=== PATIENT | female | born 1960 | race Caucasian/White ===

== ENCOUNTER → 2019-03-30 07:24 | Outpatient (CLI) | payer OTHER, SELFPAY ==
[2019-03-24 14:16] VITALS: BMI 23.5
[2019-03-30 08:10] LABS: AST(SGOT) 14 U/L (15-37); Alanine Aminotransfer ALT/SGPT 21 U/L (13-56); Alkaline Phosphatase 68 U/L (45-117); Bilirubin, Direct 0.16 mg/dL (0.00-0.30); Cholesterol 199 mg/dL (200); High Density Lipoprotein 70 mg/dL; Triglycerides 82 mg/dL; Very Low Density Lipoprotein 16 mg/dL (5-40)
== END ==
PROVIDERS: PCP Internal Medicine; Referring Provider Internal Medicine Cardiovascular Disease; Visit Provider Internal Medicine Cardiovascular Disease
DX: Z13.220 Encounter for screening for lipoid disorders (principal)
CPT/HCPCS: 36415; 80061; 80076

== ENCOUNTER → 2019-04-08 15:04 | Outpatient (CLI) | payer OTHER, SELFPAY ==
[2019-03-24 14:16] VITALS: BMI 23.5
--- NOTE | 2019-04-08 15:10 | ECHOCS_ITS ---
Reason For Study: MVP Procedure This was a 2D Doppler, Color Flow transthoracic echocardiogram. Contrast injection was performed. Exam performed in department. Left Ventricle Normal size and thickness. The estimated ejection fraction is 65 %. Normal diastology for age. No regional wall motion abnormalities noted. Right Ventricle Mildly dilated right ventricle. Normal systolic function. Atria The left atrium is moderately enlarged. Normal right atrium. Normal atrial septum. Bubble contrast study negative for right to left interatrial shunt. Mitral Valve Anterior leaflet mitral valve prolapse. Mild (1+) posteriorly directed mitral valve insufficiency. Tricuspid Valve Normal tricuspid valve. Mild (1+) tricuspid valve insufficiency. Right ventricular systolic pressure estimated to be 30 mmHg. Aortic Valve Normal aortic valve. Trisinus/trileaflet aortic valve. Pulmonic Valve Normal pulmonic valve. Trivial pulmonic valve insufficiency. Great Vessels Normal aortic root. Normal arch. Normal inferior vena cava. Inferior vena cava collapse with sniff. Pericardium/Pleural No pericardial effusion. Medication 22 gauge I.V. with prn adaptor inserted into right arm. Diluted definity 3ml given slow IV push to enhance endocardial definition. Performed a rapid injection of agitated mix of 9 cc saline and 1cc air to assess for atrial septal defect. MMode/2D Measurements & Calculations LVIDd: 4.2 cm IVSd: 0.97 cm Ao root diam: 2.8 cm LVIDs: 1.9 cm LVPWd: 1.0 cm LA dimension: 3.8 cm RVDd: 3.9 cm FS: 55.2 % LAV(MOD-sp4): 83.8 ml LA A4 area: 25.3 cm2 RA A4 area: 15.4 cm2 Time Measurements MV dec time: 0.23 sec Doppler Measurements & Calculations MV E max sundar: 51.5 cm/sec Lat Peak E' Sundar: 9.2 cm/sec Med Peak E' Sundar: 7.9 cm/sec MV A max sundar: 43.9 cm/sec E/E' lat: 5.6 E/E' med: 6.5 MV E/A: 1.2 MV V2 max: 66.0 cm/sec MV P1/2t max sundar: 68.6 cm/sec Ao V2 max: 103.5 cm/sec MV max P.7 mmHg MV P1/2t: 128.7 msec Ao max P.3 mmHg MV V2 mean: 40.8 cm/sec MV dec slope: 156.1 cm/sec2 Ao V2 mean: 72.2 cm/sec MV mean P.76 mmHg Ao mean P.3 mmHg MV V2 VTI: 24.2 cm MVA(P1/2t): 1.7 cm2 Ao V2 VTI: 22.6 cm LV V1 max: 91.0 cm/sec PA V2 max: 95.3 cm/sec TR max sundar: 249.6 cm/sec LV V1 max P.3 mmHg TR max P.9 mmHg LV V1 mean P.5 mmHg LV V1 mean: 56.3 cm/sec LV V1 VTI: 19.6 cm Interpretation Summary The estimated ejection fraction is 65 %. Normal diastology for age. Mildly dilated right ventricle. The left atrium is moderately enlarged. Bubble contrast study negative for right to left interatrial shunt. Anterior leaflet mitral valve prolapse. Mild (1+) posteriorly directed mitral valve insufficiency. Mild (1+) tricuspid valve insufficiency. Right ventricular systolic pressure estimated to be 30 mmHg. The study was technically difficult. Contrast injection was performed. There is no comparison study available. Ordering Physician: Harris Mari Referring Physician: Harris Mari Performed By: Brian Keyes RCS
== END ==
PROVIDERS: PCP Internal Medicine; Referring Provider Internal Medicine Cardiovascular Disease; Visit Provider Internal Medicine Cardiovascular Disease
DX: I34.0 Nonrheumatic mitral (valve) insufficiency (principal); I34.1 Nonrheumatic mitral (valve) prolapse; I49.3 Ventricular premature depolarization; Z86.79 Personal history of other diseases of the circulatory system
CPT/HCPCS: 93306; Q9957; A4216; C8929

== ENCOUNTER → 2019-04-15 12:18 | Outpatient (CLI) | payer OTHER, SELFPAY ==
[2019-03-24 14:16] VITALS: BMI 23.5
--- NOTE | 2019-04-15 12:19 | STE_ITS ---
Reason For Study: Abnormal EKG Stress Results Protocol: Good Protocol Maximum Predicted HR: 163 bpm Target HR: 139 bpm % Maximum Predicted HR: 90 % DurationHeart Rate Stage (mm:ss) (bpm) BP Comment Baseline 69 124/72No Chest Pain Good Protocol Stage I 3:00 95 118/70No Chest Pain Good Protocol Stage II 3:00 111 124/64No Chest Pain Good Protocol Stage III 3:00 141 140/70No Chest Pain Good Protocol Stage IV 0:16 146 / No Chest Pain Recovery 84 116/70No Chest Pain Stress Duration: 9:16 mm:ss Maximum Stress HR: 146 bpm METS: 10 Baseline Echocardiogram Findings The estimated ejection fraction is 65 %. Stress Echo Wall motion Data Resting WM Intermediate WM Stress WM Resting Wall Motion Wall Motion Stress No regional wall motion No regional wall motion abnormalities noted. abnormalities noted. EKG Data The baseline ECG displays normal sinus rhythm. The patient exercised according to the regular Good protocol for a total duration of 9:16. The maximum heart rate attained was 148 beats per minute. This was 90% of maximum predicted heart rate. The patient exercised into stage 4 of the Good protocol. During stress, there were no ST or T wave changes noted to suggest ischemia. No clinical angina was noted. Interpretation Summary The estimated ejection fraction is 65 %. Normal, adequate, treadmill echocardiogram. Negative for ischemia by EKG and echocardiographic criteria. No anginal symptoms noted. No arrhythmias noted. Appropriate blood pressure response to exercise. Average exercise capacity for age. Final LVEF is 75%. Test terminated due to leg discomfort. Patient tolerated procedure well. No complications. Ordering Physician: Harris Mari Referring Physician: Larissa Jaimes Performed By: Felecia Roldan, RDCS, RVT
== END ==
PROVIDERS: PCP Internal Medicine; Referring Provider Internal Medicine Cardiovascular Disease; Visit Provider Internal Medicine Cardiovascular Disease
DX: R94.31 Abnormal electrocardiogram [ECG] [EKG] (principal); I34.0 Nonrheumatic mitral (valve) insufficiency; I34.1 Nonrheumatic mitral (valve) prolapse; I49.3 Ventricular premature depolarization; Z86.79 Personal history of other diseases of the circulatory system; Z51.81 Encounter for therapeutic drug level monitoring; Z79.899 Other long term (current) drug therapy
CPT/HCPCS: 93017; 93350

== ENCOUNTER → 2020-07-06 07:31 | Outpatient (CLI) | payer OTHER, SELFPAY ==
[2019-11-17 10:55] VITALS: BMI 22.2
[2020-07-06 08:50] LABS: AST(SGOT) 15 U/L (15-37); Alanine Aminotransfer ALT/SGPT 20 U/L (13-56); Albumin, Serum 4.1 g/dL (3.2-5.0); Alkaline Phosphatase 64 U/L (45-117); Bilirubin, Direct 0.15 mg/dL (0.00-0.30); Cholesterol 184 mg/dL (200); Globulin 2.8 g/dL (2.2-4.2); High Density Lipoprotein 67 mg/dL; Protein, Total 6.9 g/dL (6.4-8.2); Triglycerides 95 mg/dL; Very Low Density Lipoprotein 19 mg/dL (5-40)
== END ==
PROVIDERS: PCP Internal Medicine; Referring Provider Internal Medicine Cardiovascular Disease; Visit Provider Internal Medicine Cardiovascular Disease
DX: E78.00 Pure hypercholesterolemia, unspecified (principal); I34.1 Nonrheumatic mitral (valve) prolapse; I34.0 Nonrheumatic mitral (valve) insufficiency; Z86.79 Personal history of other diseases of the circulatory system
CPT/HCPCS: 36415; 80061; 80076

== ENCOUNTER 2021-03-03 07:52 | Outpatient (CLI) | payer OTHER, SELFPAY ==
[2021-03-03 08:53] LABS: AST(SGOT) 16 U/L (15-37); Alanine Aminotransfer ALT/SGPT 19 U/L (13-56); Albumin, Serum 3.9 g/dL (3.2-5.0); Alkaline Phosphatase 69 U/L (45-117); Bilirubin, Direct 0.14 mg/dL (0.00-0.30); Cholesterol 204 mg/dL (200); Globulin 3.1 g/dL (2.2-4.2); High Density Lipoprotein 71 mg/dL; Triglycerides 89 mg/dL; Very Low Density Lipoprotein 18 mg/dL (5-40)
== END 2021-03-03 23:59 | disposition short-term general hospital (02) ==
PROVIDERS: PCP Internal Medicine; Referring Provider Internal Medicine Cardiovascular Disease; Visit Provider Internal Medicine Cardiovascular Disease
DX: E78.00 Pure hypercholesterolemia, unspecified (principal); I34.0 Nonrheumatic mitral (valve) insufficiency; I34.1 Nonrheumatic mitral (valve) prolapse
CPT/HCPCS: 36415; 80061; 80076

== ENCOUNTER 2021-04-24 13:53 | Outpatient (CLI) | payer OTHER, SELFPAY ==
--- NOTE | 2021-04-24 13:55 | ECHOD_ITS ---
Reason For Study: MITRAL VALVE PROLAPSE Procedure This was a 2D Doppler, Color Flow transthoracic echocardiogram. Exam performed in department. Left Ventricle Normal LV size. Sigmoid septum. Left ventricular systolic function is normal. The estimated ejection fraction is 60 %. No evidence for diastolic dysfunction. No regional wall motion abnormalities noted. Right Ventricle Normal RV size. Normal systolic function. Atria The left atrium is mildly enlarged. Normal right atrium. No doppler evidence for ASD. Mitral Valve There is no mitral annular calcification. Moderate mitral valve prolapse. Moderate (2+) eccentric mitral valve insufficiency. Tricuspid Valve Normal tricuspid valve. Mild to moderate (1-2+) tricuspid valve insufficiency. Right ventricular systolic pressure estimated to be 30 mmHg. Aortic Valve Trisinus/trileaflet aortic valve. Normal aortic valve. Pulmonic Valve The pulmonic valve is not well visualized. Trivial eccentric pulmonic valve insufficiency. Great Vessels Normal sized aortic root. Pericardium/Pleural No pericardial effusion. MMode/2D Measurements & Calculations LVIDd: 4.2 cm IVSd: 0.94 cm Ao root diam: 2.4 cm LVIDs: 2.9 cm LVPWd: 0.84 cm RVDd: 3.4 cm FS: 31.5 % LAV(MOD-bp): 74.2 ml LA A4 area: 17.7 cm2 LA dimension(2D): 4.2 cm LAV(MOD-bp) Indexed: 42.1 ml/m2 LAV(MOD-sp2): 75.8 ml LAV(MOD-sp4): 61.4 ml RA A4 area: 10.4 cm2 Time Measurements MV dec time: 0.14 sec Doppler Measurements & Calculations MV E max sundar: 67.5 cm/sec Lat Peak E' Sundar: 9.7 cm/sec Med Peak E' Sundar: 8.3 cm/sec MV A max sundar: 56.6 cm/sec E/E' lat: 7.0 E/E' med: 8.2 MV E/A: 1.2 PA V2 max: 90.5 cm/sec TR max sundar: 256.7 cm/sec TR max P.5 mmHg ECHO/Echo Complete Interpretation Summary Left ventricular systolic function is normal. The estimated ejection fraction is 60 %. Sigmoid septum. The left atrium is mildly enlarged. Moderate mitral valve prolapse. Moderate (2+) eccentric mitral valve insufficiency. Mild to moderate (1-2+) tricuspid valve insufficiency. Trivial eccentric pulmonic valve insufficiency. Right ventricular systolic pressure estimated to be 30 mmHg. No evidence for diastolic dysfunction. Ordering Physician: Anabelle Ponce Referring Physician: Larissa Jaimes Performed By: Suzanne Saunders RDCS, RVT
== END 2021-04-24 23:59 | disposition home or self-care (01) ==
LOC: CVS 13:54
PROVIDERS: PCP Internal Medicine; Referring Provider Physician Assistant Medical; Visit Provider Physician Assistant Medical
DX: I34.0 Nonrheumatic mitral (valve) insufficiency (principal); I34.1 Nonrheumatic mitral (valve) prolapse
CPT/HCPCS: 93306

== ENCOUNTER → 2022-04-19 | Outpatient (CLI) | payer OTHER, SELFPAY ==
[2022-04-19 09:36] LABS: AST(SGOT) 15 U/L (15-37); Alanine Aminotransfer ALT/SGPT 21 U/L (13-56); Alkaline Phosphatase 62 U/L (45-117); Bilirubin, Direct 0.15 mg/dL (0.00-0.30); Cholesterol 193 mg/dL (200); High Density Lipoprotein 65 mg/dL; Triglycerides 86 mg/dL; Very Low Density Lipoprotein 17 mg/dL (5-40)
== END | disposition home or self-care (01) ==
PROVIDERS: PCP Internal Medicine; Visit Provider Internal Medicine Cardiovascular Disease
DX: E78.00 Pure hypercholesterolemia, unspecified (principal); I34.0 Nonrheumatic mitral (valve) insufficiency
CPT/HCPCS: 36415; 80061; 80076

== ENCOUNTER → 2023-04-18 | Outpatient (CLI) | payer OTHER, SELFPAY ==
--- OUTSIDE RECORDS SUMMARY | 2023-04-18 08:07 | XMS RPT_ITS | CCD ---
Author Name Unknown Address [address] [place] [address] Organization [facility] Care Team Providers Care Aviation Technician Name Role Phone BEBO BYRD Unavailable Unavailable BEBO BYRD Unavailable Unavailable TALAMPAS, JOAO Unavailable Unavailable BEBO BYRD Unavailable Unavailable BEBO BYRD Unavailable Unavailable ALBAROAMPASHIA, JOAO Unavailable Unavailable Joao Jaimes MD Primary Care Provider Joao Jaimes MD Primary Care Provider DEVI JOAO D Primary Care Unavailable RAVI CHRISTOPHER MAMIE ROXANNE Referring Unavailable CORINA BOYCE Attending Unavailable TALAMPAS, JOAO D Primary Care Unavailable CORINA BOYCE Referring Unavailable TALAMPAS, JOAO D Primary Care Unavailable TALAMPAS, JOAO D Referring Unavailable CORINA BOYCE Attending Unavailable TALAMPAS, JOAO D Referring Unavailable TALAMPAS, JOAO D Attending Unavailable TALAMPAS, JOAO D Primary Care Unavailable TALAMPAS, JOAO D Primary Care Unavailable Allergies Allergy Classification Reported Allergen(s) Allergy Type Date of Onset Reaction(s) Facility (17 sources) magnesium sulfate; Translations: [MAGNESIUM SULFATE] Drug Allergy 5 Other: See Comments [facility] (17 sources) minocycline; Translations: [MINOCYCLINE] Drug Allergy 5 Rash, Intolerance [facility] (17 sources) Sulfonamides (Antibiotic); Translations: [SULFA (SULFONAMIDE ANTIBIOTICS)] Propensity to adverse reactions (disorder) 5 Hives [facility] Medications Current Medications Medication Drug Class(es) Dates Sig (Normalized) Sig (Original) amoxicillin 875 mg / clavulanate 125 mg oral tablet (2 sources) Penicillin-class Antibacterial Start: 05-20-2021 End: 05-27-2021 take 1 tablet by mouth twice daily amoxicillin-clav ulanic acid (AUGMENTIN) 875-125 mg per tablet Take 1 tablet by mouth twice daily for 7 days. 14 tablet 0 05/20/2021 05/27/2021 Active Completed/Discontinued Medications Medication Drug Class(es) Dates Sig (Normalized) Sig (Original) acebutolol 400 mg oral capsule (14 sources) beta-Adrenergic Harsha Start: 03-17-2018 take 1 capsule by mouth once daily at bedtime Acebutolol HCl 400 mg capsule Indications: PVC (premature ventricular contraction) , SVT (supraventricular tachycardia) ([facility]) , Palpitations Take 1 capsule by mouth daily at bedtime. 90 capsule 3 03/17/2018 Active Problems Active Problems Problem Classification Problem Date Documented Date Episodic/Chronic Cardiac dysrhythmias (20 sources) Supraventricular tachycardia; Translations: [Ventricular premature beats] Onset: 11-17-2008 11-17-2008 Chronic Cardiac dysrhythmias (14 sources) Palpitations; Translations: [Palpitations] 03-02-2005 Episodic Heart valve disorders (14 sources) Rheumatic mitral valve disease, unspecified; Translations: [Mitral valve disorders] Onset: 08-22-2005 08-22-2005 Chronic Menstrual disorders (14 sources) Intermenstrual bleeding - irregular; Translations: [Excessive and frequent menstruation with irregular cycle] Onset: 03-28-2016 03-28-2016 Chronic Nonmalignant breast conditions (1 source) Lump in upper inner quadrant of right breast; Translations: [Unspecified lump in the right breast, upper inner quadrant] Episodic Other aftercare (4 sources) Patient encounter status; Translations: [Other buttermilk drier operator (current) drug therapy] Episodic Other and unspecified benign neoplasm (1 source) Benign neoplasm of right breast; Translations: [Fibroadenoma of breast, right] Onset: 04-17-2022 Episodic Other connective tissue disease (1 source) Bilateral medial epicondylitis of elbows; Translations: [Medial epicondylitis, right elbow] Episodic Other connective tissue disease (1 source) Lateral epicondylitis of bilateral humerus; Translations: [Lateral epicondylitis, right elbow] Episodic Other connective tissue disease (1 source) Pain in left foot; Translations: [Pain in left foot] Episodic Other screening for suspected conditions (not mental disorders or infectious disease) (6 sources) Mammography abnormal; Translations: [Other abnormal and inconclusive findings on diagnostic imaging of breast] Onset: 03-23-2022 Episodic Other upper respiratory infections (1 source) Acute maxillary sinusitis; Translations: [Acute maxillary sinusitis, unspecified] Episodic Unclassified (1 source) Unknown / UNK(Unknown) Onset: 10-03-2009 Past or Other Problems Problem Classification Problem Date Documented Da te Episodic/Chronic Other non-traumatic joint disorders (14 sources) Greater trochanteric pain syndrome of right lower limb; Translations: [Pain in right hip] Onset: 06-18-2018 06-18-2018 Episodic Spondylosis; intervertebral disc disorders; other back problems (15 sources) Lumbar radiculopathy; Translations: [Radiculopathy, lumbar region] Onset: 06-18-2018 06-18-2018 Episodic Results Test Name Value Interpretation Reference Range Facil ity Vital Signs Date Time Vital Sign Value Performing Clinician Faci lity 03-23-2022 14:27-0500 Body height 168.9 cm Corina Boyce MD Work Phone: [facility] 03-23-2022 14:27-0500 Body weight 68.95 kg Corina Boyce MD Work Phone: [facility] 03-23-2022 14:27-0500 Diastolic blood pressure 80 mm[Hg] Corina Boyce MD Work Phone: [facility] 03-23-2022 14:27-0500 Heart rate 65 /min Corina Boyce MD Work Phone: [facility] 03-23-2022 14:27-0500 Systolic blood pressure 125 mm[Hg] Corina Boyce MD Work Phone: [facility] 03-09-2022 13:45-0500 Body height 168.9 cm Teena Carroll MD Work Phone: [facility] 03-09-2022 13:45-0500 Body weight 68.95 kg Teena Carroll MD Work Phone: [facility] 03-09-2022 13:45-0500 Diastolic blood pressure 74 mm[Hg] Teena Carroll MD Work Phone: [facility] 03-09-2022 13:45-0500 Systolic blood pressure 112 mm[Hg] Teena Carroll MD Work Phone: [facility] 05-20-2021 09:30-0400 Body temperature 99.19 [degF] [facility]IMPROVEMENT RN Work Phone: [facility] 05-20-2021 09:30-0400 Body weight 66.32 kg Reaganlasha Gonzalezcharli [employer]IMPROVEMENT RN Work Phone: [facility] 05-20-2021 09:30-0400 Diastolic blood pressure 78 mm[Hg] Reagan Pendlecharli [employer]IMPROVEMENT RN Work Phone: [facility] 05-20-2021 09:30-0400 Heart rate 71 /min Reagan Pendnorma [employer]IMPROVEMENT RN Work Phone: [facility] 05-20-2021 09:30-0400 Respiratory rate 14 /min [facility] [employer]IMPROVEMENT RN Work Phone: [facility] 05-20-2021 09:30-0400 SaO2% (BldA) [Mass fraction] 92 % [facility]IMPROVEMENT RN Work Phone: [facility] 05-20-2021 09:30-0400 Systolic blood pressure 110 mm[Hg] [facility]IMPROVEMENT RN Work Phone: [facility] 05-16-2021 13:23-0400 Body weight 65.41 kg Joao Jaimes MD Work Phone: [facility] 05-16-2021 13:23-0400 Diastolic blood pressure 78 mm[Hg] Joao Jaimes MD Work Phone: [facility] 05-16-2021 13:23-0400 Heart rate 72 /min Joao Jaimes MD Work Phone: [facility] 05-16-2021 13:23-0400 Systolic blood pressure 106 mm[Hg] Joao Jaimes MD Work Phone: [facility] Encounters Encounter Date Encounter Type Care Provider Facility Start: 03-05-2024 Documentation procedure Mammog tyler Coordinator [facility] Start: 04-16-2023 Letter encounter Mammography Coordinator [facility] Department Start: 04-16-2023 End: 04-16-2023 Subsequent hospital visit by physician Screen Mammo [facility] Mammogram Procedures Date Procedure Procedure Detail Performing Clinician Start: 04-16-2023 Screening digital br east tomosynthesis bi Teena Carroll MD Work Phone: Start: 04-09-2022 YEN DIAG W THELMA RT Corina Boyce MD Work Phone: Start: 04-09-2022 Bx breast w/device 1 st lesion ultrasound guid Corina Boyce MD Work Phone: Start: 03-07-2022 Us breast uni real t jacob with image limited Teena Carroll MD Work Phone: Start: 03-07-2022 YEN DIAG W THELMA RIGHT R adama Carroll MD Work Phone: Start: 01-25-2022 YEN SCREENING W THELMA Re alaina Carroll MD Work Phone: Start: 01-25-2022 Mammography Teena wilde MD Work Phone: Start: 05-24-2021 2019 CORONAVIRUS [facility] Start: 01-23-2021 Mammography Reagan marquez [employer]IMPROVEMENT RN Work Phone: Start: 09-11-2018 Lipid 1996 panel - S betsy or Plasma [facility] Start: 10-29-2017 Adult depression scr eening assessment Reagan Hooks [employer]IMPROVEMENT RN Work Phone: Plan of Treatment Date Care Activity Detail Author Start: 01-17-2025 HPV TESTING HPV TESTING [facility] Start: 01-17-2025 PAP TESTING PAP TESTING [facility] Start: 01-17-2025 Screening for malign ant neoplasm of cervix [facility] Start: 06-27-2024 DIABETES SCREEN DIABETES SCREEN [facility] Start: 06-27-2024 Diabetes Screening Diabetes Screenin g [facility] Start: 04-24-2024 COLOGUARD (FIT-DNA) COLOGUARD (FIT-D NA) [facility] Start: 04-24-2024 COLORECTAL CANCER SCREENING COLORECTAL CANCER SCREENING [facility] Start: 04-24-2024 Screening for malign ant neoplasm of colon [facility] Start: 04-15-2024 Screening for malign ant neoplasm of breast Mammogram Screening [facility] Start: 04-02-2024 Covid-19 Vaccine ( season) Covid-19 Vaccine () [facility] Immunizations Immunization Date Immunization Notes Care Provider Florian mcintosh 2022 influenza, injectabl e, quadrivalent, preservative free Screen [facility] Work Phone: 11-20-2021 influenza, injectabl e, quadrivalent, preservative free Screen [facility] Work Phone: 11-20-2021 influenza virus vaccine, unspecified formulation Diagnostic [facility] 11-21-2020 influenza, injectabl e, quadrivalent, preservative free Reagan Pendlebury [employer] Work Phone: [facility] Work Phone: 11-23-2019 influenza, injectabl e, quadrivalent, preservative free Reagan Pendlebury [employer] Work Phone: [facility] Work Phone: 11-23-2019 influenza, seasonal, injectable Reagan Pendlebury [employer] Work Phone: [facility] Work Phone: Payers Date Payer Category Payer Unknown [id number] 2021 Private Health Insurance [employer] A ETNA ASA GENERIC [id number] 2021-Present [phone] [address] [address] [place] [address] PPO [id number] 2021 Private Health Insurance [id number] [id number] Unknown [id number] Social History Date Type Detail Facility Start: 03-09-2022 Tobacco smoking stat us [facility] Never smoked tobacco [facility] Work Phone: Start: 05-20-2021 End: 04-02-2023 Alcohol intake Current non-drinker of alcohol (finding) [facility] Start: 01-06-2019 History SDOH Financial 5 [facility] Start: 01-06-2019 History SDOH Food Worry 1 [facility] Start: 01-06-2019 History SDOH Transpo rt Med 2 [facility] Start: 01-06-2019 Education 18 [facility] Start: 1960 Sex Assigned At Not on file [facility] Start: 05-10-2021 End: 05-20-2021 Exposure to SARS-CoV-2 (event) Not sure [facility] Work Phone: Start: 03-09-2022 Tobacco use and exposure Smokeless tobacco non-user [facility] Start: 05-20-2021 End: 04-02-2023 History of Social function [facility] Work Phone: Start: 05-20-2021 End: 04-02-2023 Tobacco use panel [facility] Work Phone: How hard is it for y ou to pay for the very basics like food, housing, medical care, and heating Not hard at all [facility] Work Phone: (I/We) worried wheth er (my/our) food would run out before (I/we) got money to buy more. Never true [facility] Work Phone: Clinical Notes 05-22-2010 to 04-16-2023 Letter - Coordinator, Mammography - 04/16/2023 10:05 AM Riddhi Cooper RT(R) - 04/16/2023 8:30 AM ESTTelephone Encounter - Scralett Aguilera RN - 04/20/2022 8:44 AM ESTPatient Instructions Note Date & Type Note Facility 04-16-2023 Miscellaneous Notes April 16, 2023 PID: [id number] Priscilla Alexander [id number] [place] [address] Dear Ms. Alexander, We are pleased to inform you that the results of your recent breast imaging exam on 04/16/2023 are normal. Your mammogram demonstrates that you have dense breast tissue, which could hide abnormalities. Dense breast tissue, in and of itself, is a relatively common condition. Therefore, this information is not provided to cause undue concern; rather, it is to raise your awareness and promote discussion with your health care provider regarding the presence of dense breast tissue in addition to other risk factors. Early detection of cancer is very important. We also understand recommendations regarding breast cancer screening are controversial. Please discuss with your primary care provider which strategy is best for you and whether a mammogram is right for you. Your imaging studies and report will be kept on file at [facility] as part of your permanent medical record and are available for your continuing care. Thank you for allowing us to help in meeting your health care needs. Sincerely, Dr. Stover Interpreting Radiologist [facility] (Normal over 40) documented in this encounter [facility] 04-16-2023 History of Presen t illness Narrative Radiology Service Progress Note PATIENT NAME: Priscilla Alexander DATE OF SERVICE: April 16, 2023 TIME: 8:27 AM PATIENT IDENTITY VERIFICATION COMPLETED USING TWO (2) IDENTIFIERS: Name and Date of confirmed by patient verbally. FALL SCREENING: Has the patient had 2 falls in the last year or 1 fall with injury or currently using an Ambulatory Assistive Device (Walker, Cane, Wheelchair, Crutches, etc.)? No PATIENT GENDER DATA: Female. status: : No status: NO. PATIENT RELEVANT IMPLANT DATA REVIEWED: Not Applicable PATIENT PRESENTS WITH AN IMPLANTABLE OR ATTACHED PRETZEL COOKER: No RADIOLOGY DEPARTMENT: Mammography PERIPHERAL IV DATA: Not applicable SIGNED BY: RT Leeanne(R) April 16, 2023 8:27 AM documented in this encounter [facility] 02-05-2023 Note HNO ID: [id number] Author: William Cohen MD Service: ? Author Type: Physician Type: Progress Notes Filed: 02/05/2023 10:32 AM Note Text: Patient presents with: Sinus Problem: sinus pressure, sore throat, ear pain and drainage x 2 weeks increased x 2 days HPI: Feeling intermittent sinus symptoms for a few weeks. Worsened the last 5 days and even worse the last 2 days. Positive symptoms: Sore throat, Earache, Sinus pressure, Nasal Congestion, colored Rhinorrhea, Post nasal drainage, Negative symptoms: Cough, Chest tightness, Fever, OTC: excedrin tension, claritin, saline spray Negative home COVID test this weekend. MEDICATIONS: Current Outpatient Medications Medication Sig Acebutolol HCl 400 mg capsule Take 1 capsule by mouth daily at bedtime. flecainide (TAMBOCOR) 50 mg tablet Take 1 tablet by mouth every 12 hours. No current facility-administered medications for this visit. ALLERGIES: ALLERGIES Allergen Reactions Magnesium Sulfate Other: See Comments patient had decreased reflexes when on magnesium sulfate for severe preeclampsia Minocycline Rash, Intolerance Visible red polka dots under surface of the skin. Sulfa (Sulfonamide * Hives VITALS: BP 122/72 Pulse 80 Temp 36.8 ?C (98.3 ?F) Resp 16 Wt 68.5 kg (151 lb) LMP 07/15/2017 SpO2 97% BMI 24.01 kg/m? PHYSICAL EXAM: GEN: mildly ill appearing HEENT: PERRL, EOMI, conjunctiva clear Ears: left canal cerumen. RTM without erythema, bulge, or effusion Sinuses: tender frontal sinus, tender maxillary sinuses Throat: moist mucous membranes, mild erythema, no exudate Neck: supple, no thyromegaly, no lymphadenopathy HEART: regular rate and rhythm, no murmurs LUNGS: clear to auscultation, no wheezes or crackles, no increased WOB ASSESSMENT/PLAN: 1. Acute non-recurrent sinusitis, unspecified location - ICD9: 461.9, ICD10: J01.90 - AMOXICILLIN 875 MG-POTASSIUM CLAVULANATE 125 MG TABLET Continue supportive care. William Cohen MD [facility] 04-20-2022 Miscellaneous Notes Mamm with THELMA order pending documented in this encounter [facility] 04-17-2022 Note HNO ID: [id number] Author: Corina Boyce MD Service: ? Author Type: Physician Type: Progress Notes Filed: 04/17/2022 1:43 PM Note Text: Corina Boyce MD [facility] [address] [place], [place] [id number] HPI: Ms. Alexander is a White 61 year old woman who presents for follow up after right breast image guided biopsy. FAMILY HISTORY Problem Relation Age of Onset Breast Cancer Mother 42 Cancer Father lung-smoker Heart Brother 58 PAST MEDICAL HISTORY Diagnosis Date Bursitis R hip MITRAL VALVE prolapse 08/22/2005 Osteopenia Other acne Palpitations PAST SURGICAL HISTORY Procedure Laterality Date BX OF BREAST; INCISIONAL Right 04/09/2022 DELIVERY ONLY x 1 , low cervical LAPAROSCOPY SURG RPR INITIAL INGUINAL HERNIA 05/11/2010 right inguinal RPR UMBILICAL HRNA 5 YRS/> REDUCIBLE 05/11/2010 UNSPECIFIED ORAL SURGERY PROCEDURE, BY REPORT WISDOM TEETH EXTRACTED, one side Social History Tobacco Use Smoking status: Never Smokeless tobacco: Never Vaping Use Vaping Use: Never used Substance Use Topics Alcohol use: No Drug use: No AGE AT M[facility]HE 13 AGE AT FIRST 29 FAMILY HISTORY OF BREAST CANCER Yes (IF YES) NUMBER OF FIRST DEGREE RELATIVES WITH BREAST CANCER 1 PREVIOUS BREAST BIOPSIES Yes (X1) RACE JERRY MODEL RISK 6 YEAR 3.7 JERRY MODEL RISK LIFETIME 17.7 LAB AND IMAGING RESULTS: FINAL DIAGNOSIS A. Breast, right 1:00 9 cm FTN, biopsy (ribbon clip) - Fibroadenoma. Review of Systems Constitutional: Negative for chills and fever. PHYSICAL EXAMINATION BP 129/75 Pulse (!) 56 Ht 168.9 cm (5' 6.5 ) Wt 68.9 kg (152 lb) LMP 07/15/2017 BMI 24.17 kg/m? General appearance: Well appearing, alert, in no acute distress Skin: skin color, texture, turgor normal, no suspicious rashes or lesions Eyes: Anicteric sclera, Pupils are equally round and reactive Extremities: No clubbing, cyanosis, or edema. Neuro: Alert and oriented times three Right breast: Her incision is clean dry and intact. There is no evidence of infection or hematoma. Plan IMPRESSION / PLAN: Ms. Alexander is a White 61 year old woman who presents for follow up after right breast image guided biopsy. Clinical examination reveals no evidence of postprocedural complications Pathologic findings are as follows: FINAL DIAGNOSIS A. Breast, right 1:00 9 cm FTN, biopsy (ribbon clip) - Fibroadenoma. These findings are considered both clinically and radiologically concordant. Radiology recommends returning to annual screening mammogram. At this point, reassurance was provided. She can follow-up with me as needed. DIAGNOSIS: Encounter Diagnosis ICD-10-CM 1. Fibroadenoma of breast, right D24.1 Monthly self breast exams encouraged. I discussed my findings and recommendations with the patient. Ms. Alexander is in agreement with the plan. Corina Boyce MD [facility] 04-09-2022 Note HNO ID: [id number] Author: RT Artur(R) Service: ? Author Type: Technologist Type: Progress Notes Filed: 04/09/2022 11:47 AM Note Text: Radiology Service Progress Note PATIENT NAME: Priscilla Alexander DATE OF SERVICE: April 09, 2022 TIME: 11:47 AM PATIENT IDENTITY VERIFICATION COMPLETED USING TWO (2) IDENTIFIERS: Name and Date of confirmed by patient verbally. FALL SCREENING: Has the patient had 2 falls in the last year or 1 fall with injury or currently using an Ambulatory Assistive Device (Walker, Cane, Wheelchair, Crutches, etc.)? No PATIENT GENDER DATA: Female. status: : No status: NO. PATIENT RELEVANT IMPLANT DATA REVIEWED: Not Applicable RADIOLOGY DEPARTMENT: Mammography PERIPHERAL IV DATA: Not applicable SIGNED BY: RT Artur(Radha) April 09, 2022 11:47 AM [facility] 04-09-2022 Note HNO ID: [id number] Author: RT Vane(R) Service: ? Author Type: Technologist Type: Progress Notes Filed: 04/09/2022 10:35 AM Note Text: Radiology Service Progress Note PATIENT NAME: Priscilla Alexander DATE OF SERVICE: April 09, 2022 TIME: 10:35 AM PATIENT IDENTITY VERIFICATION COMPLETED USING TWO (2) IDENTIFIERS: Name and Date of confirmed by patient verbally. FALL SCREENING: Has the patient had 2 falls in the last year or 1 fall with injury or currently using an Ambulatory Assistive Device (Walker, Cane, Wheelchair, Crutches, etc.)? No PATIENT GENDER DATA: Female. status: : No status: NO. PATIENT RELEVANT IMPLANT DATA REVIEWED: Not Applicable RADIOLOGY DEPARTMENT: Ultrasound PERIPHERAL IV DATA: Not applicable SIGNED BY: RT Vane(R) April 09, 2022 10:35 AM [facility] 04-09-2022 History of Presen t illness Narrative Radiology Service Progress Note PATIENT NAME: Priscilla Alexander DATE OF SERVICE: April 09, 2022 TIME: 10:35 AM PATIENT IDENTITY VERIFICATION COMPLETED USING TWO (2) IDENTIFIERS: Name and Date of confirmed by patient verbally. FALL SCREENING: Has the patient had 2 falls in the last year or 1 fall with injury or currently using an Ambulatory Assistive Device (Walker, Cane, Wheelchair, Crutches, etc.)? No PATIENT GENDER DATA: Female. status: : No status: NO. PATIENT RELEVANT IMPLANT DATA REVIEWED: Not Applicable RADIOLOGY DEPARTMENT: Ultrasound PERIPHERAL IV DATA: Not applicable SIGNED BY: RT Vane(R) April 09, 2022 10:35 AM Radiology Service Progress Note PATIENT NAME: Priscilla Alexander DATE OF SERVICE: April 09, 2022 TIME: 11:47 AM PATIENT IDENTITY VERIFICATION COMPLETED USING TWO (2) IDENTIFIERS: Name and Date of confirmed by patient verbally. FALL SCREENING: Has the patient had 2 falls in the last year or 1 fall with injury or currently using an Ambulatory Assistive Device (Walker, Cane, Wheelchair, Crutches, etc.)? No PATIENT GENDER DATA: Female. status: : No status: NO. PATIENT RELEVANT IMPLANT DATA REVIEWED: Not Applicable RADIOLOGY DEPARTMENT: Mammography PERIPHERAL IV DATA: Not applicable SIGNED BY: RT Artur(R) April 09, 2022 11:47 AM documented in this encounter [facility] 03-23-2022 Note HNO ID: [id number] Author: Corina Boyce MD Service: ? Author Type: Physician Type: Progress Notes Filed: 03/23/2022 3:20 PM Note Text: Corina Boyce MD [facility] [address] [place], [place] [id number] HPI: Priscilla Alexander is a 61 year old White female who presents for an evaluation of abnormal right breast imaging showing a lesion located at 1:00 that is classified as suspicious. Ultrasound-guided biopsy is recommended. The patient denies any new findings or changes on her self breast exam. Nursing Notes: SHIRIN Huggins 03/23/2022 2:31 PM Signed New patient presents for abnormal mammogram. Patient denies palpable breast lump, breast pain, skin changes, nipple change, nipple discharge or breast trauma. SHIRIN Huggins AGE AT [facility] 13 AGE AT FIRST 39 FAMILY HISTORY OF BREAST CANCER Yes (IF YES) NUMBER OF FIRST DEGREE RELATIVES WITH BREAST CANCER 1 PREVIOUS BREAST BIOPSIES No RACE HISTORY OF USING CONTROL PILLS Yes (30 years) HISTORY OF USING HORMONE REPLACEMENT THERAPY No Obstetric History T1 L1 SAB0 IAB0 Ectopic0 Multiple0 Live Births0 Name of Baby 1: Not recorded Date: Not recorded GA: Not recorded Delivery: Not recorded Apgar1: Not recorded Apgar5: Not recorded Living: Not recorded PAST MEDICAL HISTORY Diagnosis Date Bursitis R hip MITRAL VALVE prolapse 08/22/2005 Osteopenia Other acne Palpitations PAST SURGICAL HISTORY Procedure Laterality Date DELIVERY ONLY x 1 , low cervical LAPAROSCOPY SURG RPR INITIAL INGUINAL HERNIA 05-11-10 right inguinal RPR UMBILICAL HRNA 5 YRS/> REDUCIBLE 05-11-10 UNSPECIFIED ORAL SURGERY PROCEDURE, BY REPORT WISDOM TEETH EXTRACTED, one side FAMILY HISTORY Problem Relation Age of Onset Breast Cancer Mother 42 Cancer Father lung-smoker Heart Brother 58 CURRENT MEDICATIONS: Acebutolol HCl 400 mg capsule Take 1 capsule by mouth daily at bedtime. flecainide (TAMBOCOR) 50 mg tablet Take 1 tablet by mouth every 12 hours. CURRENT ALLERGIES: ALLERGIES Allergen Reactions Magnesium Sulfate Other: See Comments patient had decreased reflexes when on magnesium sulfate for severe preeclampsia Minocycline Rash, Intolerance Visible red polka dots under surface of the skin. Sulfa (Sulfonamide * Hives Social History Tobacco Use Smoking status: Never Smokeless tobacco: Never Vaping Use Vaping Use: Never used Substance Use Topics Alcohol use: No Drug use: No LABS AND IMAGING: IMPRESSION: SUSPICIOUS FINDING - BIOPSY SHOULD BE CONSIDERED The 1.6 cm irregular equal density asymmetry in the right breast is suspicious of malignancy. An ultrasound guided biopsy is recommended. LIMITED ULTRASOUND OF RIGHT BREAST: 03/07/2022 RESULT: Comparison is made to exams dated: 01/25/2022 mammogram, 01/23/2021 mammogram, 01/18/2020 mammogram, 01/13/2019 mammogram, and 01/01/2019 mammogram - [facility]. Color flow and real-time ultrasound of the right breast 1 o'clock region were performed. Briggs scale images of the real-time examination were reviewed. There is a 1.6 cm x 0.7 cm x 1.2 cm lobulated mass with an indistinct margin in the right breast at 1 o'clock posterior depth 9 cm from the nipple. This lobulated mass is hypoechoic with internal echoes. This correlates with mammography findings. Directed ultrasound of the right axilla was negative. IMPRESSION: SUSPICIOUS FINDING - BIOPSY SHOULD BE CONSIDERED The 1.6 cm x 0.7 cm x 1.2 cm lobulated mass in the right breast is suspicious of malignancy. An ultrasound guided biopsy is recommended. Negative right axillary ultrasound. Lakshmi chavez/michi:03/07/2022 09:17:53 Multiple national specialty organizations have released breast cancer screening guidelines for women at average risk for developing breast cancer - guidelines that are based on both evidence and opinion, yet differ on when to start and how often to screen for breast cancer. With representation from Breast Imaging, Internal Medicine, Women's Health, Family Medicine, and Medical/Surgical Oncology, the [facility] has carefully reviewed the data and reached the following consensus: 1) All women should engage in shared decision-making with their providers to decide when to start and how often to screen; 2) All women should have the opportunity to start screening mammography at age 40; 3) For women ages 45-55, we recommend annual screening mammograms; 4) For women ages 55 and over, we support both the transition from an annual to a biennial interval if this aligns more with patient's values and preferences, or continuation with annual screening; 5) All women should discuss with their providers when to stop screening mammograms. C Unix Developer(s): Neha Magallon, [facility]; Riddhi Lainez [facility] OVERALL STUDY BIRADS: 4 Susp (more content not included)... [facility] 03-23-2022 History of Presen t illness Narrative Images from the original note were not included. Corina Boyce MD [facility] [address] [id number] HPI: Priscilla Alexander is a 61 year old White female who presents for an evaluation of abnormal right breast imaging showing a lesion located at 1:00 that is classified as suspicious. Ultrasound-guided biopsy is recommended. The patient denies any new findings or changes on her self breast exam. Nursing Notes: SHIRIN Huggins 03/23/2022 2:31 PM Signed New patient presents for abnormal mammogram. Patient denies palpable breast lump, breast pain, skin changes, nipple change, nipple discharge or breast trauma. SHIRIN Huggins AGE AT MEN[place]HE 13 AGE AT FIRST 39 FAMILY HISTORY OF BREAST CANCER Yes (IF YES) NUMBER OF FIRST DEGREE RELATIVES WITH BREAST CANCER 1 PREVIOUS BREAST BIOPSIES No RACE HISTORY OF USING CONTROL PILLS Yes (30 years) HISTORY OF USING HORMONE REPLACEMENT THERAPY No Obstetric History T1 L1 SAB0 IAB0 Ectopic0 Multiple0 Live Births0 Name of Baby 1: Not recorded Date: Not recorded GA: Not recorded Delivery: Not recorded Apgar1: Not recorded Apgar5: Not recorded Living: Not recorded PAST MEDICAL HISTORY Diagnosis Date Bursitis R hip MITRAL VALVE prolapse 08/22/2005 Osteopenia Other acne Palpitations PAST SURGICAL HISTORY Procedure Laterality Date DELIVERY ONLY x 1 , low cervical LAPAROSCOPY SURG RPR INITIAL INGUINAL HERNIA 05-11-10 right inguinal RPR UMBILICAL HRNA 5 YRS/> REDUCIBLE 05-11-10 UNSPECIFIED ORAL SURGERY PROCEDURE, BY REPORT WISDOM TEETH EXTRACTED, one side FAMILY HISTORY Problem Relation Age of Onset Breast Cancer Mother 42 Cancer Father lung-smoker Heart Brother 58 CURRENT MEDICATIONS: Acebutolol HCl 400 mg capsule Take 1 capsule by mouth daily at bedtime. flecainide (TAMBOCOR) 50 mg tablet Take 1 tablet by mouth every 12 hours. CURRENT ALLERGIES: ALLERGIES Allergen Reactions Magnesium Sulfate Other: See Comments patient had decreased reflexes when on magnesium sulfate for severe preeclampsia Minocycline Rash, Intolerance Visible red polka dots under surface of the skin. Sulfa (Sulfonamide * Hives Social History Tobacco Use Smoking status: Never Smokeless tobacco: Never Vaping Use Vaping Use: Never used Substance Use Topics Alcohol use: No Drug use: No LABS AND IMAGING: IMPRESSION: SUSPICIOUS FINDING - BIOPSY SHOULD BE CONSIDERED The 1.6 cm irregular equal density asymmetry in the right breast is suspicious of malignancy. An ultrasound guided biopsy is recommended. LIMITED ULTRASOUND OF RIGHT BREAST: 03/07/2022 RESULT: Comparison is made to exams dated: 01/25/2022 mammogram, 01/23/2021 mammogram, 01/18/2020 mammogram, 01/13/2019 mammogram, and 01/01/2019 mammogram - [facility]. Color flow and real-time ultrasound of the right breast 1 o'clock region were performed. Briggs scale images of the real-time examination were reviewed. There is a 1.6 cm x 0.7 cm x 1.2 cm lobulated mass with an indistinct margin in the right breast at 1 o'clock posterior depth 9 cm from the nipple. This lobulated mass is hypoechoic with internal echoes. This correlates with mammography findings. Directed ultrasound of the right axilla was negative. IMPRESSION: SUSPICIOUS FINDING - BIOPSY SHOULD BE CONSIDERED The 1.6 cm x 0.7 cm x 1.2 cm lobulated mass in the right breast is suspicious of malignancy. An ultrasound guided biopsy is recommended. Negative right axillary ultrasound. Lakshmi chavez/michi:03/07/2022 09:17:53 Multiple national specialty organizations have released breast cancer screening guidelines for women at average risk for developing breast cancer - guidelines that are based on both evidence and opinion, yet differ on when to start and how often to screen for breast cancer. With representation from Breast Imaging, Internal Medicine, Women's Health, Family Medicine, and Medical/Surgical Oncology, the [facility] has carefully reviewed the data and reached the following consensus: 1) All women should engage in shared decision-making with their providers to decide when to start and how often to screen; 2) All women should have the opportunity to start screening mammography at age 40; 3) For women ages 45-55, we recommend annual screening mammograms; 4) For women ages 55 and over, we support both the transition from an annual to a biennial interval if this aligns more with patient's values and preferences, or continuation with annual screening; 5) All women should discuss with their providers when to stop screening mammograms. C Unix Developer(s): Neha Magallon, [facility]; Riddhi Lainez, [facility] OVERALL STUDY BIRADS: 4 Suspicious finding - Biopsy should be considered Inspector Multifocal Lens: Michi Transcribe Date/Time: Mar 07 2022 8:30A Dictated by : LAKSHMI BACK MD This examination was interpreted and the report reviewed and electronically signed by: LAKSHMI BACK MD on Mar 07 2022 9:17AM EST Results-Findings * * *Final Report* * * DATE OF EXAM: Mar 07 2022 9:06AM [id number] - [facility] [employer] BREAST LTD RT / PROCEDURE REASON: Abnormal mammogram * * * * Physician Interpretation * * * * #[id number] - [facility] DIAG W THELMA RT #[id number] - [facility] [employer] BREAST LTD RT UNILATERAL RIGHT DIGITAL DIAGNOSTIC MAMMOGRAM TOMOSYNTHESIS WITH CAD: 03/07/2022 HISTORY: Abnormal Mammogram / Call back/abnormal mamm: Right /priors available for comparison Abnormal Mammogram. RESULT: TECHNIQUE: The study was acquired using full field digital technology and interpreted from soft copy. Digital Breast Tomosynthesis (DBT) images were obtained and used to assist in the interpretation of this examination. Current study was also evaluated with a Computer Aided Detection (CAD). Comparison is made to exams dated: 01/25/2022 mammogram, 01/23/2021 mammogram, 01/18/2020 mammogram, 01/13/2019 mammogram, and 01/01/2019 mammogram - [facility]. The tissue of right breast is heterogeneously dense. This may lower the sensitivity of mammography. There is a 1.6 cm irregular equal density asymmetry in the right breast posterior depth superior region seen on the mediolateral oblique view only. No other significant masses or calcifications are seen in the breast Review of Systems Constitutional: Negative for chills, fever, malaise/fatigue and weight loss. HENT: Negative for hearing loss. Eyes: Negative for blurred vision. Respiratory: Negative for cough, shortness of breath and wheezing. Cardiovascular: Positive for palpitations. Negative for chest pain and leg swelling. Gastrointestinal: Negative for abdominal pain, nausea and vomiting. Musculoskeletal: Positive for joint pain. Negative for back pain, myalgias and neck pain. Neurological: Negative for dizziness, tingling, tremors and headaches. PHYSICAL EXAM: BP 125/80 Pulse 65 Ht 168.9 cm (5' 6.5 ) Wt 68.9 kg (152 lb) LMP 07/15/2017 BMI 24.17 kg/m General appearance: Well appearing, alert, in no acute distress Skin: skin color, texture, turgor normal, no suspicious rashes or lesions Eyes: Anicteric sclera, Pupils are equally round and reactive Abdomen: soft, non-tender, non-distended Extremities: No clubbing, cyanosis, or edema. Heart: Regular rate and rhythm Lungs: Clear to ascultation bilaterally Neuro: Alert and oriented times three Physical Exam Chest: Breasts: Breasts are symmetrical. Right: No swelling, inverted nipple, mass, nipple discharge, skin change or tenderness. Left: No swelling, inverted nipple, mass, nipple discharge, skin change or tenderness. Lymphadenopathy: Upper Body: Right upper body: No axillary adenopathy. Left upper body: No axillary adenopathy. The mammogram and breast ultrasound was reviewed in detail. Plan IMPRESSION/PLAN: Priscilla Alexander is a 61 year old White female who presents for an evaluation of abnormal right breast imaging showing a lesion located at 1:00 that is classified as suspicious. Ultrasound-guided biopsy is recommended. The patient denies any new findings or changes on her self breast exam. Clinical breast examination finds no evidence of any discrete suspicious mass, skin change, nipple discharge or lymphadenopathy in either breast. Recent breast imaging was reviewed both films and reports. Agree with need for biopsy. Right breast ultrasound-guided biopsy was ordered today. She will follow-up for the results. DIAGNOSIS: Encounter Diagnosis ICD-10-CM 1. Abnormal finding on breast imaging R92.8 US BIOPSY BREAST RT documented in this encounter [facility] 03-23-2022 Nurse Note New patient presents for abnormal mammogram. Patient denies palpable breast lump, breast pain, skin changes, nipple change, nipple discharge or breast trauma. 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 Last Pap: 01/21/2020 normal HPV: 01/20/2020 negative History of abnormal pap: No Last mammogram: 2022 abnormal, History of abnormal mammogram: Yes OB History T1 L1 SAB0 IAB0 Ectopic0 Multiple0 Live Births0 Electronic Engraver History LMP: 07/28/2017 (Exact Date), Postmenopausal Age at Menarche: Age at First : Age at Menopause: Electronic Engraver History Comments: Sexual Activity: Yes; Male Contraception: Other PAST MEDICAL HISTORY Diagnosis Date Bursitis R hip MITRAL VALVE prolapse 08/22/2005 Osteopenia Other acne Palpitations PAST SURGICAL HISTORY Procedure Laterality Date DELIVERY ONLY x 1 , low cervical LAPAROSCOPY SURG RPR INITIAL INGUINAL HERNIA 05-11-10 right inguinal RPR UMBILICAL HRNA 5 YRS/> REDUCIBLE 05-11-10 UNSPECIFIED ORAL SURGERY PROCEDURE, BY REPORT WISDOM TEETH EXTRACTED, one side FAMILY HISTORY Problem Relation Age of Onset Breast Cancer Mother 42 Cancer Father lung-smoker Heart Brother 58 SOCIAL HISTORY Social History Tobacco Use Smoking status: Never Smokeless tobacco: Never Vaping Use Vaping Use: Never used Substance Use Topics Alcohol use: No Drug use: No REVIEW OF SYSTEMS Abdomen: No abdominal pain, nausea, vomiting, diarrhea, or constipation. No bloating, early satiety, indigestion, or increased flatulence. Bladder: No dysuria, gross hematuria, urinary frequency, urinary urgency, or incontinence Breast: No breast lumps, nipple d/c, overlying skin changes, redness or skin retraction Allergies and current medication updated:Yes EXAM: BP 112/74 Ht 5' 6.5 (1.69m) Wt 152 lb (68.9kg) LMP 07/28/2017 BMI 24.17 kg/(m^2). GENERAL: pleasant, female in no apparent distress HEENT: Normocephalic, atraumatic, mucus membranes moist, and no lesions NECK: Supple, full range of motion, no adenopathy, and thyroid normal DERMATOLOGY: Normal, without lesions, non-icteric, and non-hirsute BREAST: soft, non-tender, symmetric, no dominant mass, normal nipple-areolar complex, no lymphadenopathy, and no nipple discharge CHEST: Normal inspiratory effort ABDOMEN: soft, non-tender, and no masses PELVIC: external genitalia normal, normal Bartholin's glands, urethra, Grandfalls's glands, no vulvar lesions, no cervical lesions, good vaginal support, physiologic discharge present, normal appearing perineal body and perianal region, atrophic changes flattened pale epithelium BIMANUAL: uterus normal size, shape and consistency, no adnexal masses, and non-tender RECTOVAGINAL: deferred. NEURO: alert and oriented x3,exam grossly non-focal EXTREMITIES: normal ASSESSMENT/PLAN: 1) Health maintenance: Pap done with HPV. Mammogram up to date Colon cancer screening: up to date with screening 2) Follow up one year or sooner as needed Teena Carroll MD documented in this encounter [facility] 03-07-2022 History of Presen t illness Narrative Radiology Service Progress Note PATIENT NAME: Priscilla Alexander DATE OF SERVICE: March 07, 2022 TIME: 9:23 AM PATIENT IDENTITY VERIFICATION COMPLETED USING TWO (2) IDENTIFIERS: Name and Date of confirmed by patient verbally. FALL SCREENING: Has the patient had 2 falls in the last year or 1 fall with injury or currently using an Ambulatory Assistive Device (Walker, Cane, Wheelchair, Crutches, etc.)? No PATIENT GENDER DATA: Female. status: : No status: NO. PATIENT RELEVANT IMPLANT DATA REVIEWED: Not Applicable RADIOLOGY DEPARTMENT: Ultrasound PERIPHERAL IV DATA: Not applicable SIGNED BY: Neha Magallon RDMS March 07, 2022 9:23 AM documented in this encounter [facility] 03-07-2022 History of Presen t illness Narrative Radiology Service Progress Note PATIENT NAME: Priscilla Alexander DATE OF SERVICE: March 07, 2022 TIME: 8:22 AM PATIENT IDENTITY VERIFICATION COMPLETED USING TWO (2) IDENTIFIERS: Name and Date of confirmed by patient verbally. FALL SCREENING: Has the patient had 2 falls in the last year or 1 fall with injury or currently using an Ambulatory Assistive Device (Walker, Cane, Wheelchair, Crutches, etc.)? No PATIENT GENDER DATA: Female. status: : No status: NO. PATIENT RELEVANT IMPLANT DATA REVIEWED: Not Applicable RADIOLOGY DEPARTMENT: Mammography PERIPHERAL IV DATA: Not applicable SIGNED BY: RT Leeanne(R) March 07, 2022 8:22 AM documented in this encounter [facility] 01-25-2022 History of Presen t illness Narrative Radiology Service Progress Note PATIENT NAME: Priscilla Alexander DATE OF SERVICE: January 25, 2022 TIME: 9:10 AM PATIENT IDENTITY VERIFICATION COMPLETED USING TWO (2) IDENTIFIERS: Name and Date of confirmed by patient verbally. FALL SCREENING: Has the patient had 2 falls in the last year or 1 fall with injury or currently using an Ambulatory Assistive Device (Walker, Cane, Wheelchair, Crutches, etc.)? No PATIENT GENDER DATA: Female. status: : No status: NO. PATIENT RELEVANT IMPLANT DATA REVIEWED: Not Applicable RADIOLOGY DEPARTMENT: Mammography PERIPHERAL IV DATA: Not applicable SIGNED BY: RT Leeanne(R) January 25, 2022 9:10 AM documented in this encounter [facility] 05-25-2021 Miscellaneous Notes Patient notified of providers message and verbalized understanding. Covid 19 symptom management recommendations sent via [employer].-can review with pt if needed Can come in for recheck if needed. Video visit OK - mychart on demand. Home isolation recommended to avoid spread of illness Pt calling to report she tested + for covid19 on a home test yesterday. Has been having sinus drainage, cough & a little brain fog, tested neg for covid on 05/19/21, seen at 05/20/21 then tested positive yesterday. Pt states she has a little more brain fog & mucus this am but is coughing less. Pt denies sob or any breathing difficulties. Pt is doing her best to quarantine at home. Will return to work on Saturday05/29/21. Pt asking if she should be doing anything else? Teri Jacobo LPN documented in this encounter [facility] 05-25-2021 Instructions Justa Bucio APRN.UTILIZATION REVIEW RN - 05/25/2021 12:18 PM EDT How to Manage Common Symptoms Associated with COVID for Adults Fever- Fever is a temperature over 100.4 F and can occur when the body is fighting an infection. To help treat a fever: Drink plenty of fluids and stay well hydrated. Eat small amounts of easy to digest food. Rest. Your body needs rest to recover, but getting up and moving around the house frequently is a good idea. You should try to continue doing your normal daily activities (bathing, toileting, grooming, cooking), though you will probably feel tired, and need to rest often. Avoid any heavy activity or exercise, as this will increase your body temperature. Dress in light clothing and stay covered in a light sheet. Keep the room temperature cool. Take a slightly warm (not cold or cool) bath, or apply damp washcloths to the forehead and wrists. Cough- Cough is a common symptom associated with COVID and can be bothersome. To help treat a cough: Stay well hydrated. Try warm water or tea with lemon and/or honey to help soothe the cough. Use a humidifier to add moisture to the air. Try a product with menthol, like a cough drop or a rub for your chest such as Vicks, which can help reduce cough. Try cough drops. Avoid smoking and other strong odors or perfumes. Try breathing exercises to keep your lungs open and clear. Take a big deep breath through your nose and hold for 5 seconds before slowly releasing. Repeat frequently, while you are awake. Congestion- Runny nose or nasal congestion can occur with COVID. Treatment can help relieve symptoms: Try OTC nasal saline spray, or nasal saline rinse to relieve mucus congestion. Nasal strips can help keep nasal passages open, to increase airflow. Elevating your head with an extra pillow in bed can help reduce congestion. Using a humidifier can increase moisture in the air, and make breathing easier. Sore Throat- Another common symptom with COVID, can be managed at home by: Stay well hydrated. Gargle with salt water mix teaspoon salt with 1 cup of warm water and gargle. This helps to loosen mucus in the back of the throat and may reduce discomfort. Try ice chips, popsicles or lozenges to soothe the throat. Nausea/Vomiting/Diarrhea- These are common symptoms, and staying hydrated is most important. If you are nauseous or vomiting, start with small sips of water every 10-15 minutes and increase as tolerated. You can try sucking an ice cube too. If tolerating, you can try pedialyte or Gatorade, or flat sprite or nara-king. Start slowly and increase as you are able to. Instead of meals, try smaller, more frequent snacks. Try eating bland foods like crackers, toast, rice, and applesauce. Avoid spicy, greasy or fried foods and dairy containing foods. Even if you aren't feeling hungry due to lack of smell or taste, it is important to try to take in some food when you are able. After drinking and eating, rest in an upright position for up to two hours as needed to help decrease nauseous feelings. Try closing your eyes, avoid moving and watching TV. Avoid strong odors that can make you feel more nauseated. When to seek emergency medical attention Look for emergency warning signs for COVID-19. If having any of these symptoms, seek emergency medical care immediately: Trouble breathing Persistent pain or pressure in the chest New confusion Inability to wake or stay awake Bluish lips or face *This list is not all possible symptoms. Please call your medical provider for any other symptoms that are severe or concerning to you. documented in this encounter [facility] 05-20-2021 History of Presen t illness Narrative Subjective HPI Nontoxic-appearing female presents urgent care chief complaint sinus pain. Duration of symptoms week and a half. Associated symptoms increased sinus pressure and drainage. Patient states she has history of sinus infections this feels similar. Has not used any OTC medications. Did use Aleve and Tylenol yesterday and this did help. Denies any fever body aches chills productive cough chest pain shortness of breath pleuritic pain hemoptysis or change in bowel or bladder habits. Past medical history prescription medication use allergies reviewed. .Patient presents with: Sinus Problem: 1.5 weeks, worsening PAST MEDICAL HISTORY Diagnosis Date Bursitis R hip MITRAL VALVE prolapse 08/22/2005 Osteopenia Other acne Palpitations PAST SURGICAL HISTORY Procedure Laterality Date DELIVERY ONLY x 1 , low cervical LAPAROSCOPY SURG RPR INITIAL INGUINAL HERNIA 05-11-10 right inguinal RPR UMBILICAL HRNA 5 YRS/> REDUCIBLE 05-11-10 UNSPECIFIED ORAL SURGERY PROCEDURE, BY REPORT WISDOM TEETH EXTRACTED, one side ALLERGIES Magnesium Sulfate, Minocycline, and Sulfa (Sulfonamide Antibiotics) MEDICATIONS Acebutolol HCl 400 mg capsule Take 1 capsule by mouth daily at bedtime. flecainide (TAMBOCOR) 50 mg tablet Take 1 tablet by mouth every 12 hours. FAMILY HISTORY Problem Relation Age of Onset Breast Cancer Mother 42 Cancer Father lung-smoker Heart Brother 58 Social History Tobacco Use Smoking status: Never Smoker Smokeless tobacco: Never Used Vaping Use Vaping Use: Never used Substance Use Topics Alcohol use: No Drug use: No BP 110/78 Pulse 71 Temp 37.3 C (99.2 F) Resp 14 Wt 66.3 kg (146 lb 3.2 oz) LMP 07/28/2017 (Exact Date) SpO2 92% BMI 23.24 kg/m Review of Systems Constitutional: Negative for chills, fever and malaise/fatigue. HENT: Positive for sinus pain. Negative for congestion, ear discharge, ear pain and sore throat. Eyes: Negative for blurred vision, pain, discharge and redness. Respiratory: Negative for cough, hemoptysis, sputum production, shortness of breath, wheezing and stridor. Cardiovascular: Negative for chest pain. Gastrointestinal: Negative for abdominal pain, diarrhea, nausea and vomiting. Musculoskeletal: Negative for myalgias. Skin: Negative for itching and rash. Neurological: Negative for dizziness and headaches. Objective Physical Exam Constitutional: General: She is not in acute distress. Appearance: She is not diaphoretic. HENT: Head: Normocephalic. Right Ear: Hearing, tympanic membrane, ear canal and external ear normal. Left Ear: Hearing, tympanic membrane, ear canal and external ear normal. Nose: Right Sinus: Maxillary sinus tenderness present. Left Sinus: Maxillary sinus tenderness present. Mouth/Throat: Mouth: Mucous membranes are moist. Pharynx: Oropharynx is clear. No oropharyngeal exudate or posterior oropharyngeal erythema. Eyes: Conjunctiva/sclera: Conjunctivae normal. Pupils: Pupils are equal, round, and reactive to light. Cardiovascular: Rate and Rhythm: Normal rate and regular rhythm. Heart sounds: Normal heart sounds. Pulmonary: Effort: Pulmonary effort is normal. No tachypnea, accessory muscle usage or respiratory distress. Breath sounds: Normal breath sounds. No stridor. No wheezing, rhonchi or rales. Abdominal: Palpations: Abdomen is soft. Tenderness: There is no abdominal tenderness. Musculoskeletal: Cervical back: Normal range of motion and neck supple. No rigidity or tenderness. Lymphadenopathy: Cervical: No cervical adenopathy. Skin: General: Skin is warm and dry. Neurological: Mental Status: She is alert and oriented to person, place, and time. ASSESSMENT/PLAN: 1. Acute maxillary sinusitis, recurrence not specified - ICD9: 461.0, ICD10: J01.00 Patient diagnosed with maxillary sinusitis. Patiently placed on Augmentin. Supportive therapies discussed. Patient will follow up with primary care provider as needed. Patient was instructed to immediately proceed to emergency room for any new, worsening, or symptoms lasting longer than anticipated. The patient's clinical presentation is otherwise unremarkable at this time. Based on exam and clinical finding, the patient is stable for discharge. Plan of care was discussed with patient. Patient verbalizes understanding and agrees to plan of care. This note was generated using [employer] software. It may contain errors in wording, punctuation, or spelling. Reagan Hooks APRN.CHAD documented in this encounter [facility] 05-16-2021 History of Presen t illness Narrative This note was created using [employer]. Subjective Priscilla Alcantar is a 60 year old female. HISTORY Priscilla Alcantar is a 60 year old lady here for yearly exam and follow up appointment. No more vertigo since recovered from episode when had to got UC. Still with congestion in sinuses and nose. Can get drainage coming through eyes when bends. Zyrtec too sedating. Can get headaches with weather changes. Also if out more. Excedrin tension helps for the headaches after an hour. Dr. Muñoz for MVP and palpitations.. Recent echo done. Issues with pain in elbows in epicondyles noted. PAST MEDICAL HISTORY Diagnosis Date Bursitis R hip MITRAL VALVE prolapse 08/22/2005 Osteopenia Other acne Palpitations Current Outpatient Medications Medication Sig Acebutolol HCl 400 mg capsule Take 1 capsule by mouth daily at bedtime. flecainide (TAMBOCOR) 50 mg tablet Take 1 tablet by mouth every 12 hours. No current facility-administered medications for this visit. ALLERGIES Allergen Reactions Magnesium Sulfate Other: See Comments patient had decreased reflexes when on magnesium sulfate for severe preeclampsia Minocycline Rash, Intolerance Visible red polka dots under surface of the skin. Sulfa (Sulfonamide * Hives FAMILY HISTORY Problem Relation Age of Onset Breast Cancer Mother 42 Cancer Father lung-smoker Heart Brother 58 Social History Tobacco Use Smoking status: Never Smoker Smokeless tobacco: Never Used Vaping Use Vaping Use: Never used Substance Use Topics Alcohol use: No Drug use: No Review of Systems Objective BP 106/78 Pulse 72 Wt 65.4 kg (144 lb 3.2 oz) LMP 07/28/2017 (Exact Date) BMI 22.93 kg/m Last 5 Encounter Wt Readings: Date: Wt: 05/16/2021 65.4 kg (144 lb 3.2 oz) 05/02/2021 66.7 kg (147 lb) 03/08/2021 65.3 kg (144 lb) 09/20/2020 61.1 kg (134 lb 12.8 oz) 01/18/2020 64.9 kg (143 lb) No waist measurement recorded Estimated body mass index is 22.93 kg/m as calculated from the following: Height as of 03/08/21: 168.9 cm (5' 6.5 ). Weight as of this encounter: 65.4 kg (144 lb 3.2 oz). Last 5 Encounter BP Readings: Date: BP: 05/16/2021 106/78 05/02/2021 112/64 03/08/2021 122/78 09/20/2020 108/68 01/18/2020 112/64 Physical Exam Vitals reviewed. Constitutional: Appearance: She is well-developed. HENT: Head: Normocephalic and atraumatic. Right Ear: External ear normal. Left Ear: External ear normal. Nose: Nose normal. Eyes: Conjunctiva/sclera: Conjunctivae normal. Neck: Thyroid: No thyromegaly. Cardiovascular: Rate and Rhythm: Normal rate and regular rhythm. Pulses: Normal pulses. Heart sounds: Normal heart sounds. No murmur heard. No friction rub. No gallop. Pulmonary: Effort: Pulmonary effort is normal. Breath sounds: Normal breath sounds. Abdominal: General: Bowel sounds are normal. There is no distension. Palpations: Abdomen is soft. There is no mass. Tenderness: There is no abdominal tenderness. Musculoskeletal: General: No deformity. Normal range of motion. Comments: tenderness medial and lateral epicondyles noted Lymphadenopathy: Cervical: No cervical adenopathy. Skin: General: Skin is warm and dry. Coloration: Skin is not jaundiced or pale. Findings: No rash. Neurological: General: No focal deficit present. Mental Status: She is alert and oriented to person, place, and time. Cranial Nerves: No cranial nerve deficit. Sensory: No sensory deficit. Motor: No abnormal muscle tone. Coordination: Coordination normal. Deep Tendon Reflexes: Reflexes normal. Psychiatric: Mood and Affect: Mood normal. Behavior: Behavior normal. Thought Content: Thought content normal. Judgment: Judgment normal. Elbow epicondylitis bilateral medial and lateral February 2021 lipids and LFTs done at [facility] for Dr. Muñoz reviewed on CareEverywhere, Assessment and Plan ASSESSMENT/PLAN: 1. Routine medical exam - ICD9: V70.0, ICD10: Z00.00 (primary diagnosis) - Counseled on healthy diet and regular exercise - BASIC METABOLIC PNL - MAGNESIUM BLD Patient here for yearly exam and follow up. Above issues addressed with patient. Patient involved in shared decision making for management of medical issues. History and medications reviewed. Epic updated as needed Refills taken care of and meds adjusted as indicated after reviewed history, exam and labs. Health Maintenance reviewed. Updated record and/or ordered tests as recorded. Encouraged on efforts at healthy diet and regular exercise and adequate sleep. 2. Encounter for long-term current use of medication - ICD9: V58.69, ICD10: Z79.899 - BASIC METABOLIC PNL - MAGNESIUM BLD 3. Bilateral medial epicondylitis of elbow joint - ICD9: 726.31, ICD10: M77.01, M77.02 Discussed management. Tennis elbow strap. NSAID as tolerated. Referral to ortho or PT as needed 4. Lateral epicondylitis of both elbows - ICD9: 726.32, ICD10: M77.11, M77.12 As noted above. 5. Right-sided thoracic back pain, unspecified chronicity - ICD9: 724.1, ICD10: M54.6 Conservative management as discussed. Further evaluation and treatment as indicated. 6. Left foot pain - ICD9: 729.5, ICD10: M79.672 Further evaluation and treatment as indicated. - XR FOOT GENERAL 3V AP/LAT/OBL LEFT Joao Jaimes MD documented in this encounter [facility] documented as of this encounter (statuses as of 05/20/2021) [facility]2011 History of Past illness Narrative* Problem Noted Date Resolved Date Umbilical hernia without mention of obstruction or gangrene 05/22/2010 04/23/2011 Right groin hernia 03/28/2010 04/23/2011 Unspecified hemorrhoids without mention of compl ication 12/20/2008 01/06/2019 documented as of this encounter (statuses as of 05/25/2021) [facility] History of Past illness Narrative* Problem Noted Date Resolved Date Umbilical hernia without mention of obstruction or gangrene 05/22/2010 04/23/2011 Right groin hernia 03/28/2010 04/23/2011 Unspecified hemorrhoids without mention of compl ication 12/20/2008 01/06/2019 documented as of this encounter (statuses as of 06/05/2021) [facility] History of Past illness Narrative* Problem Noted Date Resolved Date Umbilical hernia without mention of obstruction or gangrene 05/22/2010 04/23/2011 Right groin hernia 03/28/2010 04/23/2011 Unspecified hemorrhoids without mention of compl ication 12/20/2008 01/06/2019 documented as of this encounter (statuses as of 01/26/2022) [facility] History of Past illness Narrative* Problem Noted Date Resolved Date Umbilical hernia without mention of obstruction or gangrene 05/22/2010 04/23/2011 Right groin hernia 03/28/2010 04/23/2011 Unspecified hemorrhoids without mention of compl ication 12/20/2008 01/06/2019 documented as of this encounter (statuses as of 03/09/2022) [facility] History of Past illness Narrative* Problem Noted Date Resolved Date Umbilical hernia without mention of obstruction or gangrene 05/22/2010 04/23/2011 Right groin hernia 03/28/2010 04/23/2011 Unspecified hemorrhoids without mention of compl ication 12/20/2008 01/06/2019 documented as of this encounter (statuses as of 03/23/2022) [facility] History of Past illness Narrative* Problem Noted Date Resolved Date Umbilical hernia without mention of obstruction or gangrene 05/22/2010 04/23/2011 Right groin hernia 03/28/2010 04/23/2011 Unspecified hemorrhoids without mention of compl ication 12/20/2008 01/06/2019 documented as of this encounter (statuses as of 04/07/2022) [facility] History of Past illness Narrative* Problem Noted Date Resolved Date Umbilical hernia without mention of obstruction or gangrene 05/22/2010 04/23/2011 Right groin hernia 03/28/2010 04/23/2011 Unspecified hemorrhoids without mention of compl ication 12/20/2008 01/06/2019 documented as of this encounter (statuses as of 04/10/2022) [address]11-2011 History of Past illness Narrative* Problem Noted Date Resolved Date Umbilical hernia without mention of obstruction or gangrene 05/22/2010 04/23/2011 Right groin hernia 03/28/2010 04/23/2011 Unspecified hemorrhoids without mention of compl ication 12/20/2008 01/06/2019 documented as of this encounter (statuses as of 04/20/2022) [address]2011 History of Past illness Narrative* Problem Noted Date Diagnosed Date Resolved Date Umbilical hernia without men tion of obstruction or gangrene 05/22/2010 04/23/2011 Right groin hernia 03/28/2010 2 Unspecified hemorrhoids with out mention of complication 12/20/2008 01/06/2019 documented as of this encounter (statuses as of 12/16/2022) [address]2011 History of Past illness Narrative* Problem Noted Date Diagnosed Date Resolved Date Umbilical hernia without men tion of obstruction or gangrene 05/22/2010 04/23/2011 Right groin hernia 03/28/2010 2 Unspecified hemorrhoids with out mention of complication 12/20/2008 01/06/2019 documented as of this encounter (statuses as of 12/16/2022) [address]2011 History of Past illness Narrative* Problem Noted Date Diagnosed Date Resolved Date Umbilical hernia without men tion of obstruction or gangrene 05/22/2010 04/23/2011 Right groin hernia 03/28/2010 2 Unspecified hemorrhoids with out mention of complication 12/20/2008 01/06/2019 documented as of this encounter (statuses as of 12/16/2022) [address]2011 History of Past illness Narrative* Problem Noted Date Diagnosed Date Resolved Date Umbilical hernia without men tion of obstruction or gangrene 05/22/2010 04/23/2011 Right groin hernia 03/28/2010 2 Unspecified hemorrhoids with out mention of complication 12/20/2008 01/06/2019 documented as of this encounter (statuses as of 04/17/2023) [address]2011 History of Past illness Narrative* Problem Noted Date Diagnosed Date Resolved Date Umbilical hernia without men tion of obstruction or gangrene 05/22/2010 04/23/2011 Right groin hernia 03/28/2010 2 Unspecified hemorrhoids with out mention of complication 12/20/2008 01/06/2019 documented as of this encounter (statuses as of 04/18/2023) [facility] note* Diagnosis Acute maxillary sinusitis, recurrence not specified- Primary documented in this encounter [facility] note* Diagnosis Routine medical exam- Primary Routine general medical examination at a health care facility Encounter for long-term current use of medication Bilateral medial epicondylitis of elbow joint Lateral epicondylitis of both elbows Lateral epicondylitis of elbow Right-sided thoracic back pain, unspecified chronicity Left foot pain Pain in limb documented in this encounter [facility] note* Diagnosis Abnormal mammogram- Primary Abnormal mammogram, unspecified documented in this encounter [facility] note* Diagnosis Encounter for gynecological examination (general) (routine) without abnormal findings- Primary Mass of upper inner quadrant of right breast documented in this encounter [facility] note* Diagnosis Abnormal finding on breast imaging- Primary Other (abnormal) findings on radiological examination of breast documented in this encounter [facility] note* Diagnosis Abnormal finding on breast imaging Other (abnormal) findings on radiological examination of breast documented in this encounter [facility] note* Diagnosis Encounter for screening mammogram for malignant neoplasm of breast- Primary Other screening mammogram documented in this encounter [facility] note* Diagnosis Abnormal mammogram Abnormal mammogram, unspecified documented in this encounter [facility] note* Diagnosis Encounter for gynecological examination (general) (routine) without abnormal findings Encounter for screening mammogram for breast cancer documented in this encounter [facility] note* Diagnosis Abnormal mammogram Abnormal mammogram, unspecified documented in this encounter [facility] note* Diagnosis Encounter for screening mammogram for malignant neoplasm of breast Other screening mammogram documented in this encounter [facility] for referral (narrative)* Diagnostic Procedure Only (Routine) - Pending Review Specialty Diagnoses / Procedures Referred By Morgan t Referred To Contact XR IMAGING Diagnoses Left foot pain Procedures XR FOOT GENERAL 3V AP/LAT/OBL LEFT RADEX FOOT COMPLETE MINIMUM 3 VIEWS Joao Jaimes MD [address] [place] [address] Xr Imaging Referral ID Status Reason Start Date Expiration Date Visits Requested Visits Authorized [id number] Pending Review Auto-Generat ed Referral 05/16/2021 06/15/2022 1 1 [facility] for referral (narrative)* Diagnostic Procedure Only (Routine) - Authorized Specialty Diagnoses / Procedures Referred By Contac t Referred To Contact BR IMAGING Diagnoses Abnormal mammogram Procedures US BREAST LTD RT US BREAST UNI REAL TIME WITH IMAGE LIMITED Teena Carroll MD [address] [place] [address] [facility] [address] [place] [address] Referral ID Status Reason Start Date Expiration Date Visits Requested Visits Authorized [id number] Authorized Auto-Generat ed Referral 2 02/25/2023 1 1 * Diagnostic Procedure Only (Routine) - Authorized Specialty Diagnoses / Procedures Referred By Morgan castañeda Referred To Contact BR IMAGING Diagnoses Abnormal mammogram Procedures YEN DIAGNOSTIC RT DIAGNOSTIC MAMMOGRAPHY COMPUTER-AIDED DETCJ UNI Teena Carroll MD [address] [place] [address] [facility] [address] [place] [address] Referral ID Status Reason Start Date Expiration Date Visits Requested Visits Authorized [id number] Authorized Auto-Generat ed Referral 2 02/25/2023 1 1 [facility] for referral (narrative)* Diagnostic Procedure Only (Routine) - Pending Review Specialty Diagnoses / Procedures Referred By Morgan t Referred To Contact BR IMAGING Diagnoses Mass of upper inner quadrant of right breast Procedures US BIOPSY BREAST RT BX BREAST W/DEVICE 1ST LESION ULTRASOUND GUID Teena Carroll MD [address] [place] [address] [facility] [address] [place] [address] Referral ID Status Reason Start Date Expiration Date Visits Requested Visits Authorized [id number] Pending Review Auto-Generat ed Referral 03/09/2022 04/08/2023 1 1 * Consult, Test, Treat (Routine) - Pending Review Specialty Diagnoses / Procedures Referred By Morgan t Referred To Contact General Surgery Diagnoses Mass of upper inner quadrant of right breast Procedures CONSULT TO GENERAL SURGERY OFFICE/OUTPATIENT [facility] 60-74 MINUTES Teena Carroll MD [address] [place] [address] Referral ID Status Reason Start Date Expiration Date Visits Requested Visits Authorized [id number] Pending Review PCP Requested Referral 03/09/2022 03/09/2023 1 1 [facility] for referral (narrative)* Diagnostic Procedure Only (Routine) - Authorized Specialty Diagnoses / Procedures Referred By Morgan castañeda Referred To Contact BR IMAGING Diagnoses Abnormal finding on breast imaging Procedures US BIOPSY BREAST RT BX BREAST W/DEVICE 1ST LESION ULTRASOUND Corina Mercado MD [address] [place] [address] [facility] [address] [place] [address] Referral ID Status Reason Start Date Expiration Date Visits Requested Visits Authorized [id number] Authorized Auto-Generat ed Referral 03/23/2022 04/22/2023 1 1 [facility] for referral (narrative)* Diagnostic Procedure Only (Routine) - Closed Specialty Diagnoses / Procedures Referred By Morgan t Referred To Contact BR IMAGING Diagnoses Abnormal finding on breast imaging Procedures US BIOPSY BREAST RT BX BREAST W/DEVICE 1ST LESION ULTRASOUND Corina Mercado MD [address] [place] [address] [facility] [address] [place] [address] Referral ID Status Reason Start Date Expiration Date V isits Requested Visits Authorized [id number] Closed Auto-Generate d Referral 03/23/2022 04/22/2023 1 1 [facility] for referral (narrative)* Diagnostic Procedure Only (Routine) - Authorized Specialty Diagnoses / Procedures Referred By Veronicaac t Referred To Contact BR IMAGING Diagnoses Encounter for screening mammogram for malignant neoplasm of breast Procedures YEN SCREENING W THELMA SCREENING DIGITAL BREAST TOMOSYNTHESIS BI SCREENING MAMMOGRAPHY BI 2-VIEW BREAST INC Teena Fuchs MD [address] [place] [address] [place] [phone] Referral ID Status Reason Start Date Expiration Date Visits Requested Visits Authorized [id number] Authorized Auto-Generat ed Referral 04/20/2022 05/20/2023 1 1 [facility] for referral (narrative)* Diagnostic Procedure Only (Routine) - Closed Specialty Diagnoses / Procedures Referred By Morgan castañeda Referred To Contact BR IMAGING Diagnoses Encounter for gynecological examination (general) (routine) without abnormal findings Encounter for screening mammogram for breast cancer Procedures YEN SCREENING W THELMA SCREENING DIGITAL BREAST TOMOSYNTHESIS BI SCREENING MAMMOGRAPHY BI 2-VIEW BREAST INC Teena Fuchs MD [address] [place] [address] [facility] Imaging [address] [place] [phone] Referral ID Status Reason Start Date Expiration Date V isits Requested Visits Authorized [id number] Closed Auto-Generate d Referral 03/08/2021 04/07/2022 1 1 [facility] for referral (narrative)* Diagnostic Procedure Only (Routine) - Closed Specialty Diagnoses / Procedures Referred By Morgan castañeda Referred To Contact BR IMAGING Diagnoses Encounter for screening mammogram for malignant neoplasm of breast Procedures YNE SCREENING W THELMA SCREENING DIGITAL BREAST TOMOSYNTHESIS BI SCREENING MAMMOGRAPHY BI 2-VIEW BREAST INC CAD Teena Carroll MD [address] [place] [address] [facility] [address] [place] [address] Referral ID Status Reason Start Date Expiration Date V isits Requested Visits Authorized [id number] Closed Auto-Generate d Referral 04/20/2022 05/20/2023 1 1 [facility] for visit Narrative* Diagnostic Procedure Only (Routine) - Closed Specialty Diagnoses / Procedures Referred By Morgan castañeda Referred To Contact BR IMAGING Diagnoses Encounter for gynecological examination (general) (routine) without abnormal findings Encounter for screening mammogram for breast cancer Procedures YEN SCREENING W THELMA SCREENING DIGITAL BREAST TOMOSYNTHESIS BI SCREENING MAMMOGRAPHY BI 2-VIEW BREAST INC CAD Teena Carroll MD [address] [place] [address] [facility] [address] [place] [address] Referral ID Status Reason Start Date Expiration Date V isits Requested Visits Authorized [id number] Closed Auto-Generate d Referral 03/08/2021 04/07/2022 1 1 [facility] for visit Narrative* Diagnostic Procedure Only (Routine) - Closed Specialty Diagnoses / Procedures Referred By Morgan castañeda Referred To Contact BR IMAGING Diagnoses Encounter for screening mammogram for malignant neoplasm of breast Procedures YEN SCREENING W THELMA SCREENING DIGITAL BREAST TOMOSYNTHESIS BI SCREENING MAMMOGRAPHY BI 2-VIEW BREAST INC Teena Fuchs MD [address] [place] [address] [facility] [address] [place] [address] Referral ID Status Reason Start Date Expiration Date V isits Requested Visits Authorized [id number] Closed Auto-Generate d Referral 04/20/2022 05/20/2023 1 1 [facility] Summary Purpose Family History No Family History Records FoundNo Family History Records FoundNo Family History Records Found Advance Directives Documents on File Type Date Recorded Patient Life Trainer Expl anation Advance Directive(s) Documents on File Type Date Recorded Patient Life Trainer Expl anation Advance Directive(s) Medications Administered Section Inactive Administered Medications - up to 3 most recent administrations Medication Order MAR Action Action Date Dose Rate Site lidocaine 10 mg/mL (1 %) injection (XYLOCAINE) OTHER, NEEDED, Starting on Sat04/09/22 at 1100, Until Sat04/09/22 at 1100, Intraprocedure Given 04/09/2022 11:00 AM EST 100 mg Breast, Right Reason for Referral Specialty Diagnoses / Procedures Referred By Contac t Referred To Contact BR IMAGING Diagnoses Abnormal mammogram Procedures US BREAST LTD RT US BREAST UNI REAL TIME WITH IMAGE LIMITED Teena Carroll MD [address] [place] [address] [facility] [address] [place] [address] Referral ID Status Reason Start Date Expiration Date V isits Requested Visits Authorized [id number] Closed Clearance Not Met - Admin/Chairm an/Director Advise to Postpone/Res chedule or Not Proceed Benefit Check 03/07/2022 02/10/2023 1 1 Additional Source Comments INFORMATION SOURCE (unrecogn ized section and content) DATE CREATED AUTHOR AUTHOR'S ORGANIZ ATION 04/19/2022 [facility] DATE CREATED AUTHOR AUTHOR'S ORGANIZ ATION 04/09/2023 [facility] Source Comments (unrecognize d section and content) In the event this informatio n is protected by the Federal Confidentiality of Alcohol and Drug Abuse Patient Records regulations: The Federal rules restrict any use of the information to criminally investigate or prosecute any alcohol or drug abuse patient.[facility] event this information is protected by the Federal Confidentiality of Alcohol and Drug Abuse Patient Records regulations: The Federal rules restrict any use of the information to criminally investigate or prosecute any alcohol or drug abuse patient.[facility] the event this information is protected by the Federal Confidentiality of Alcohol and Drug Abuse Patient Records regulations: The Federal rules restrict any use of the information to criminally investigate or prosecute any alcohol or drug abuse patient.[facility] the event this information is protected by the Federal Confidentiality of Alcohol and Drug Abuse Patient Records regulations: The Federal rules restrict any use of the information to criminally investigate or prosecute any alcohol or drug abuse patient.[facility] the event this information is protected by the Federal Confidentiality of Alcohol and Drug Abuse Patient Records regulations: The Federal rules restrict any use of the information to criminally investigate or prosecute any alcohol or drug abuse patient.[facility] the event this information is protected by the Federal Confidentiality of Alcohol and Drug Abuse Patient Records regulations: The Federal rules restrict any use of the information to criminally investigate or prosecute any alcohol or drug abuse patient.[facility] the event this information is protected by the Federal Confidentiality of Alcohol and Drug Abuse Patient Records regulations: The Federal rules restrict any use of the information to criminally investigate or prosecute any alcohol or drug abuse patient.[facility] the event this information is protected by the Federal Confidentiality of Alcohol and Drug Abuse Patient Records regulations: The Federal rules restrict any use of the information to criminally investigate or prosecute any alcohol or drug abuse patient.[facility] the event this information is protected by the Federal Confidentiality of Alcohol and Drug Abuse Patient Records regulations: The Federal rules restrict any use of the information to criminally investigate or prosecute any alcohol or drug abuse patient.[facility] the event this information is protected by the Federal Confidentiality of Alcohol and Drug Abuse Patient Records regulations: The Federal rules restrict any use of the information to criminally investigate or prosecute any alcohol or drug abuse patient.[facility] the event this information is protected by the Federal Confidentiality of Alcohol and Drug Abuse Patient Records regulations: The Federal rules restrict any use of the information to criminally investigate or prosecute any alcohol or drug abuse patient.[facility] the event this information is protected by the Federal Confidentiality of Alcohol and Drug Abuse Patient Records regulations: The Federal rules restrict any use of the information to criminally investigate or prosecute any alcohol or drug abuse patient.[facility] the event this information is protected by the Federal Confidentiality of Alcohol and Drug Abuse Patient Records regulations: The Federal rules restrict any use of the information to criminally investigate or prosecute any alcohol or drug abuse patient.[facility] the event this information is protected by the Federal Confidentiality of Alcohol and Drug Abuse Patient Records regulations: The Federal rules restrict any use of the information to criminally investigate or prosecute any alcohol or drug abuse patient.[facility] Reason for Visit (unrecogniz ed section and content) Reason Comments Covid Test Result Covid 19 positive Reason Comments Establish Care Specialty Diagnoses / Procedures Referred By Contac t Referred To Contact Internal Medicine / INTERNAL MEDICINE Diagnoses Encounter for general adult medical examination without abnormal findings physical Procedures OFFICE/OUTPATIENT ESTABLISHED MOD MDM 30-39 MIN 4C NEW WELL Self Joao Jaimes MD [address] [place] [address] Referral ID Status Reason Start Date Expiration Date Visits Re quested Visits Authorized [id number] Closed 05/08/2021 02/10/2022 1 1 Reason Onset Date Comments Radiology Mammogram 01/26/2022 at [facility] Reason Comments Yearly Exam Specialty Diagnoses / Procedures Referred By Contac t Referred To Contact DIE REPAIRER STAMPING Diagnoses Annual physical exam ANNUAL Procedures OFFICE/OUTPATIENT ESTABLISHED HIGH MDM 40-54 MIN EST WHI ANNUAL PATIENT Self Teena Carroll MD [address] [place] [address] Referral ID Status Reason Start Date Expiration Date Visits Re quested Visits Authorized [id number] Closed 03/09/2022 02/10/2023 1 1 Reason Comments Consult Specialty Diagnoses / Procedures Referred By Contac t Referred To Contact General Surgery / GENERAL SURGERY Diagnoses Right breast mass-Ultrasound biopsy Procedures OFFICE/OUTPATIENT NEW MODERATE MDM 45-59 MINUTES NEW PATIENT Corina Boyce MD [address] [place] [address] Corina Boyce MD [address] [place] [address] Referral ID Status Reason Start Date Expiration Date Visits Re quested Visits Authorized [id number] Closed 02/11/2022 02/10/2023 1 1 Specialty Diagnoses / Procedures Referred By Contact Referred To Contact RADIO MAMMO REFLECTIONS [facility] Diagnoses Right breast mass-Ultrasound biopsy Procedures BX BREAST W/DEVICE 1ST LESION ULTRASOUND GUID ULTRASOUND BIOPSY Corina Boyce MD [address] [place] [address] [facility] [address] [place] [address] Referral ID Status Reason Start Date Expiration Date V isits Requested Visits Authorized [id number] Authorized 02/11/2022 02/10/2023 1 1 Referral ID Status Reason Start Date Expiration Date Visits Re quested Visits Authorized [id number] Closed 02/11/2022 02/10/2023 1 1 Specialty Diagnoses / Procedures Referred By Contac t Referred To Contact [facility] Diagnoses Abnormal mammogram Procedures YEN DIAGNOSTIC RT DIAGNOSTIC MAMMOGRAPHY COMPUTER-AIDED DETCJ UNI Teena Carroll MD [address] [place] [address] [facility] [address] [address] Referral ID Status Reason Start Date Expiration Date V isits Requested Visits Authorized [id number] Closed Clearance Not Met - Admin/Chairm an/Director Advise to Postpone/Res chedule or Not Proceed Benefit Check 03/07/2022 02/10/2023 1 1 Reason Comments Radiology US Specialty Diagnoses / Procedures Referred By Contac t Referred To Contact [facility] Diagnoses Abnormal mammogram Procedures US BREAST LTD RT US BREAST UNI REAL TIME WITH IMAGE LIMITED Teena Carroll MD [address] [place] [address] [facility] [address] [place] [address] Referral ID Status Reason Start Date Expiration Date V isits Requested Visits Authorized [id number] Closed Clearance Not Met - Admin/Chairm an/Director Advise to Postpone/Res chedule or Not Proceed Benefit Check 03/07/2022 02/10/2023 1 1 Care Teams (unrecognized sec tion and content) Aviation Technician Relationship Specialty Start Date End Date Joao Jaimes MD [address] [place] [id number] PCP - General 12/05/01 Aviation Technician Relationship Specialty Start Date End Date Joao Jaimes MD [address] [place] [id number] PCP - General 12/05/01 Aviation Technician Relationship Specialty Start Date End Date Joao Jaimes MD [address] [place] [id number] PCP - General 12/05/01 Aviation Technician Relationship Specialty Start Date End Date Joao Jaimes MD [address] [place] [id number] PCP - General 12/05/01 Aviation Technician Relationship Specialty Start Date End Date Joao Jaimes MD [address] [place] [id number] PCP - General 12/05/01 Aviation Technician Relationship Specialty Start Date End Date Joao Jaimes MD [address] [place] [address] [place] [address] PCP - General 12/05/01 Aviation Technician Relationship Specialty Start Date End Date Joao Jaimes MD [address] [place] [id number] PCP - General 12/05/01 Aviation Technician Relationship Specialty Start Date End Date Joao Jaimes MD [address] [place] [phone] PCP - General 12/05/01 Aviation Technician Relationship Specialty Start Date End Date Joao Jaimes MD [address] [place] [address] PCP - General 12/05/01 Aviation Technician Relationship Specialty Start Date End Date oJao Jaimes MD [address] [place] [address] PCP - General 12/05/01 Aviation Technician Relationship Specialty Start Date End Date Joao Jaimes MD [address] [place] [address] PCP - General 12/05/01 FOR RECORDS PERTAINING TO PATIENTS WHO ARE OR HAVE BEEN ENROLLED IN A CHEMICAL DEPENDENCY/SUBSTANCEABUSE PROGRAM, SOME INFORMATION MAY BE OMITTED. This clinical summary was aggregated from multiple sources. Caution should be exercised in using it in the provision of clinical care. This summary normalizes information from multiple sources, and as a consequence, information in this document may materially change the coding, format and clinical context of patient data. In addition, data may be omitted in some cases. CLINICAL DECISIONS SHOULD BE BASED ON THE PRIMARY CLINICAL RECORDS. [facility] provides no warranty or guarantee of the accuracy or completeness of information in this document.
[2023-04-18 08:33] LABS: Hematocrit 41.5 % (37-47); Hemoglobin 13.7 g/dL (12.0-15.0); Mean Corpuscular Volume 90.8 fL (81-99); Mean Platelet Vol. 8.5 fl (6.2-12.0); Platelet Count 242 K/mm3 (150-450); RBC Distribution Width CV 12.6 % (11.6-14.6); RBC Distribution Width SD 41.7 fl (35.1-43.9); Red Blood Count 4.57 M/mm3 (4.2-5.4); White Blood Count 5.1 K/mm3 (4.4-11.0)
[2023-04-18 09:05] LABS: AST(SGOT) 18 U/L (15-37); Alanine Aminotransfer ALT/SGPT 22 U/L (13-56); Albumin, Serum 3.9 g/dL (3.2-5.0); Alkaline Phosphatase 72 U/L (45-117); Anion Gap 6 (5-15); BUN 12 mg/dL (7-18); BUN/Creat Ratio 13.5 RATIO (10-20); Bilirubin, Direct 0.14 mg/dL (0.00-0.30); Calcium,Total 9.6 mg/dL (8.5-10.1); Chloride 109 mmol/L (98-107); Cholesterol 215 mg/dL (200); Creatinine, Serum 0.89 mg/dL (0.55-1.02); EST Glomerular Filtration Rate 68 mL/min (>60); Est Glom Filt Rate - Afr Amer 83 mL/min (>60); Globulin 3.1 g/dL (2.2-4.2); Glucose 84 mg/dL (74-106); High Density Lipoprotein 70 mg/dL; Magnesium 2.2 mg/dL (1.6-2.6); Potassium 4.4 mmol/L (3.5-5.1); Sodium Level 142 mmol/L (136-145); Triglycerides 101 mg/dL; Very Low Density Lipoprotein 20 mg/dL (5-40)
== END | disposition home or self-care (01) ==
LOC: LAB 07:46
PROVIDERS: PCP Internal Medicine; Referring Provider Nurse Practitioner Family; Visit Provider Nurse Practitioner Family
DX: Z51.81 Encounter for therapeutic drug level monitoring (principal); Z79.899 Other long term (current) drug therapy
CPT/HCPCS: 36415; 80048; 80061; 80076; 83735; 85027

== ENCOUNTER → 2024-06-11 | Outpatient (CLI) | payer OTHER, SELFPAY ==
[2024-06-11 08:00] LABS: Absolute Lymphocyte Count 1.58 X10^3/uL (0.83-4.51); Absolute Neutrophil Count 2.9 X10^3/uL (2.0-7.7); Basophil# 0.05 X10^3/uL; Eosinophil# 0.12 X10^3/uL; Eosinophils% 2.3 % (0-5); Hematocrit 41.1 % (37-47); Hemoglobin 13.9 g/dL (12.0-15.0); Lymphocyte # 1.58 X10^3/ul (0.83-4.51); Lymphocyte % 30.7 % (19-41); Mean Corp Hgb Conc 33.8 g/dL (32-36); Mean Corpuscular Hgb 30.8 pg (27.0-32.0); Mean Corpuscular Volume 91.1 fL (81-99); Mean Platelet Vol. 8.4 fl (6.2-12.0); Monocyte# 0.47 X10^3/uL; Monocyte% 9.1 % (0-10); NRBC Flagged by Analyzer 0 % (0-5); Neutrophil # 2.89 X10^3/uL (2.7-7.7); Neutrophil % 56.3 % (47-70); Platelet Count 237 K/mm3 (150-450); RBC Distribution Width CV 12.6 % (11.6-14.6); RBC Distribution Width SD 42.1 fl (35.1-43.9); Red Blood Count 4.51 M/mm3 (4.2-5.4); White Blood Count 5.1 K/mm3 (4.4-11.0)
[2024-06-11 09:08] LABS: Vitamin D,25 Hydroxy 20.7 ng/mL (30-100)
[2024-06-11 09:15] LABS: AST(SGOT) 21 U/L (<=31); Alanine Aminotransfer ALT/SGPT 14 U/L (<=34); Albumin, Serum 4.2 g/dL (3.4-4.8); Alkaline Phosphatase 72 U/L (35-104); Bilirubin, Direct 0.19 mg/dL (0.00-0.30); Cholesterol 214 mg/dL (<=200); Globulin 2.5 g/dL (2.2-4.2); High Density Lipoprotein 60 mg/dL; Low Density Lipoprotein Calc. 135 mg/dL; Protein, Total 6.7 g/dL (5.9-8.4); Total Bilirubin 0.41 mg/dL (0.00-1.30); Triglycerides 94 mg/dL; Very Low Density Lipoprotein 19 mg/dL (5-40); cholesterol:hdl ratio screen 3.57
== END | disposition home or self-care (01) ==
PROVIDERS: PCP Internal Medicine; Referring Provider Nurse Practitioner Family; Visit Provider Nurse Practitioner Family
DX: M85.89 Other specified disorders of bone density and structure, multiple sites (principal); Z79.899 Other long term (current) drug therapy; Z13.220 Encounter for screening for lipoid disorders; K59.09 Other constipation
CPT/HCPCS: 36415; 80061; 80076; 82306; 84439; 84443; 85025

== ENCOUNTER → 2024-07-27 | Outpatient (CLI) | payer OTHER, SELFPAY ==
--- NOTE | 2024-07-27 12:44 | ECHOD_ITS ---
Reason For Study Reason For Study: MVP Procedure This was a 2D Doppler, Color Flow transthoracic echocardiogram. Exam performed in department. Left Ventricle Normal LV size. The left ventricular ejection fraction is 55 %. Right Ventricle Normal RV size. Normal systolic function. Atria The left atrium is mildly enlarged. Normal right atrium. Mitral Valve Moderate mitral valve prolapse. Trivial eccentric mitral valve insufficiency. Tricuspid Valve Normal tricuspid valve. Mild (1+) tricuspid valve insufficiency. Pulmonary artery systolic pressure is 30 mmHg. Aortic Valve Trisinus/trileaflet aortic valve. Great Vessels Normal aortic root. The pulmonary artery is normal size. Inferior vena cava collapse with respiration. Pericardium/Pleural No pericardial effusion. MMode/2D Measurements & Calculations LVIDd: 4.6 cm IVSd: 0.86 cm LVOT diam: 2.0 cm LVIDs: 3.0 cm LVPWd: 0.83 cm LVOT area: 3.1 cm2 RVDd: 3.8 cm FS: 35.1 % Ao root diam: 2.8 cm LAV(MOD-bp): 76.5 ml LVAd ap4: 26.1 cm2 LAV(MOD-bp) Indexed: 43.1 ml/m2 LVLd ap4: 7.4 cm LAV(MOD-sp2): 74.6 ml EDV(MOD-sp4): 73.2 ml LAV(MOD-sp4): 69.6 ml EDV(sp4-el): 77.8 ml LVAs ap4: 16.3 cm2 LVLs ap4: 6.2 cm ESV(MOD-sp4): 32.9 ml ESV(sp4-el): 36.2 ml EF(MOD-sp4): 55.0 % EF(sp4-el): 53.4 % SV(MOD-sp4): 40.3 ml SV(sp4-el): 41.5 ml LA A4 area: 21.9 cm2 SI(MOD-sp4): 22.7 ml/m2 LA dimension(2D): 4.0 cm RA A4 area: 7.5 cm2 Time Measurements MV dec time: 0.21 sec Doppler Measurements & Calculations MV E max sundar: 63.5 cm/sec Lat Peak E' Sundar: 9.1 cm/sec Med Peak E' Sundar: 7.6 cm/sec MV A max sundar: 57.4 cm/sec E/E' lat: 6.9 E/E' med: 8.3 MV E/A: 1.1 MV V2 max: 74.0 cm/sec Ao V2 max: 111.2 cm/sec MV max P.2 mmHg MV dec slope: 308.0 cm/sec2 Ao max P.9 mmHg MV V2 mean: 39.9 cm/sec Ao V2 mean: 75.6 cm/sec MV mean P.75 mmHg Ao mean P.7 mmHg MV V2 VTI: 22.9 cm Ao V2 VTI: 25.8 cm AV (velocity ratio): 0.91 MVA(VTI): 3.2 cm2 JOHN(I,D): 2.8 cm2 JOHN(V,D): 3.0 cm2 LV V1 max: 107.7 cm/sec SV(LVOT): 72.4 ml PA V2 max: 86.1 cm/sec LV V1 max P.6 mmHg PA V2 mean: 66.1 cm/sec LV V1 mean P.7 mmHg LV V1 mean: 79.2 cm/sec LV V1 VTI: 23.4 cm TR max sundar: 261.8 cm/sec TR max P.4 mmHg ECHO/Echo Complete Interpretation Summary Normal LV size. The left ventricular ejection fraction is 55 %. The left atrium is mildly enlarged. Moderate mitral valve prolapse. Pulmonary artery systolic pressure is 30 mmHg. Ordering Physician: Nathan Bautista Referring Physician: Nathan Bautista Performed By: Genesis Presley RCS
== END | disposition home or self-care (01) ==
PROVIDERS: PCP Internal Medicine; Referring Provider Internal Medicine Cardiovascular Disease; Visit Provider Internal Medicine Cardiovascular Disease
DX: I34.1 Nonrheumatic mitral (valve) prolapse (principal)
CPT/HCPCS: 93306

== ENCOUNTER → 2024-12-30 | Outpatient (CLI) | payer OTHER, SELFPAY ==
[2024-12-30 09:54] LABS: AST(SGOT) 21 U/L (<=31); Alanine Aminotransfer ALT/SGPT 18 U/L (<=34); Albumin, Serum 4.5 g/dL (3.4-4.8); Alkaline Phosphatase 72 U/L (35-104); Bilirubin, Direct 0.15 mg/dL (0.00-0.30); Cholesterol 195 mg/dL (<=200); Globulin 2.4 g/dL (2.2-4.2); Low Density Lipoprotein Calc. 103 mg/dL; Triglycerides 135 mg/dL; Very Low Density Lipoprotein 27 mg/dL (5-40); cholesterol:hdl ratio screen 2.84
== END | disposition home or self-care (01) ==
LOC: LAB 08:51
PROVIDERS: PCP Internal Medicine; Referring Provider Nurse Practitioner Family; Visit Provider Nurse Practitioner Family
DX: E78.00 Pure hypercholesterolemia, unspecified (principal)
CPT/HCPCS: 36415; 80061; 80076